=== PATIENT | male | born 1970 | race Caucasian/White ===

== ENCOUNTER 2021-04-10 16:30 | Emergency (ER) | payer OTHER ==
[2021-04-10] MEDS ORDERED: IBUPROFEN 600 MG TAB PO STA (17:15)
[2021-04-10] MEDS ORDERED: ACETAMINOPHEN TAB 500 MG TAB PO STA (17:15)
[2021-04-10] MEDS ORDERED: SODIUM CHLORIDE 0.9% 1,000 ML IV ONE (17:16)
[2021-04-10] MEDS ORDERED: SODIUM CHLORIDE 0.9% 500 ML 500 ML IV ONE (17:16)
[2021-04-10] MEDS ORDERED: ALBUTEROL HFA INHALER INHALATION STA (17:17)
--- NOTE | 2021-04-10 17:48 | XR ---
EXAMINATION TYPE: XR chest 1V portable DATE OF EXAM: 04/10/2021 COMPARISON: NONE HISTORY: Shortness of breath and fever. TECHNIQUE: Single frontal view of the chest is obtained. FINDINGS: There is no focal air space opacity, pleural effusion, or pneumothorax seen. The cardiac silhouette size is within normal limits. The osseous structures are intact. IMPRESSION: No acute process.
[2021-04-10 17:59] LABS: Basophils # (A) 0.1 k/uL (0-0.2); Basophils % (A) 1 %; Eosinophils # (A) 0.1 k/uL (0-0.7); Eosinophils % (A) 1 %; HCT 43.7 % (39.0-53.0); HGB 14.8 gm/dL (13.0-17.5); Lymphocytes # (A) 0.5 k/uL (1.0-4.8); Lymphocytes % (A) 5 %; MCH 32.6 pg (25.0-35.0); MCHC 33.9 g/dL (31.0-37.0); MCV 96.2 fL (80.0-100.0); Mean Platelet Volume 6.7; Monocytes # (A) 0.8 k/uL (0-1.0); Monocytes % (A) 8 %; Neutrophils % (A) 84 %; Platelet Count 230 k/uL (150-450); RBC 4.55 m/uL (4.30-5.90); RDW 11.9 % (11.5-15.5); WBC 9.5 k/uL (3.8-10.6)
[2021-04-10 18:13] LABS: ALT 27 U/L (4-49); AST 31 U/L (17-59); African American GFR (CKD) >90 (>60 ml/min/1.73 sqM); Albumin 4.6 g/dL (3.5-5.0); Alkaline Phosphatase 72 U/L (38-126); Anion Gap 10 mmol/L; Blood Urea Nitrogen 22 mg/dL (9-20); Calcium 9.2 mg/dL (8.4-10.2); Carbon Dioxide 21 mmol/L (22-30); Chloride 104 mmol/L (98-107); Glucose 122 mg/dL (74-99); Non-African American GFR(CKD) >90 (>60 ml/min/1.73 sqM); Sodium 135 mmol/L (137-145); Total Bilirubin 0.7 mg/dL (0.2-1.3); Total Protein 7.6 g/dL (6.3-8.2)
[2021-04-10] MEDS ORDERED: ALBUTEROL NEBULIZED 2.5 MG/3 ML INHALATION STA (18:23)
[2021-04-10] MEDS ORDERED: OSELTAMIVIR 75 MG CAP PO STA (19:07)
--- NOTE | 2021-04-10 19:41 | ED ---
General Adult HPI - General Chief complaint: Fever Stated complaint: Fever, poss altered Time Seen by Provider: 04/10/21 16:55 Source: patient, family, RN notes reviewed, old records reviewed Mode of arrival: wheelchair Limitations: no limitations - History of Present Illness Initial comments: This is a 50-year-old male who presents emergency prostate his morning he woke up feeling terrible very fatigued hot and a little short of breath. Patient states he did not get his COVID vaccine he did not get his influenza vaccine. Patient denies chest pain or palpitations. Patient denies any headache patient denies numbness weakness. Patient's main complaint is high fever and feeling extremely weak. Patient states he is a daily smoker. Patient denies any calf tenderness or leg swelling - Related Data Home Medications Medication Instructions Recorded Confirmed Buprenorphine HCl/Naloxone HCl 1 film SL TID 04/10/21 04/10/21 [Suboxone 8 mg-2 mg Sl Film] Butalb/APAP/Caff 50-325-40Mg 1 tab PO Q6H PRN 04/10/21 04/10/21 [Fioricet 50-325-40] DULoxetine HCL [Cymbalta] 60 mg PO DAILY 04/10/21 04/10/21 Fluticasone/Umeclidin/Vilanter 2 puff INHALATION RT-BID 04/10/21 04/10/21 [Trelegy Ellipta 200-62.5-25] Pregabalin [Lyrica] 200 mg PO TID-W/MEALS 04/10/21 04/10/21 predniSONE [Deltasone] 20 mg PO DAILY 04/10/21 04/10/21 Previous Rx's Medication Instructions Recorded Albuterol Inhaler [Ventolin Hfa 2 puff INHALATION RT-QID #18 gm 04/10/21 Inhaler] Oseltamivir [Tamiflu] 75 mg PO Q12HR #10 cap 04/10/21 Allergies Allergy/AdvReac Type Severity Reaction Status Date / Time No Known Allergies Allergy Verified 04/10/21 17:52 Review of Systems ROS Statement: Those systems with pertinent positive or pertinent negative responses have been documented in the HPI. ROS Other: All systems not noted in ROS Statement are negative. Past Medical History Past Medical History: COPD History of Any Multi-Drug Resistant Organisms: None Reported Past Surgical History: Back Surgery Past Psychological History: No Psychological Hx Reported Smoking Status: Current every day smoker Past Alcohol Use History: None Reported Past Drug Use History: None Reported General Exam - General Exam Comments Initial Comments: GENERAL: Patient is well-developed and well-nourished. Patient is nontoxic and well-hydrated and is in mild distress. ENT: Neck is soft and supple. No significant lymphadenopathy is noted. Oropharynx is clear. Moist mucous membranes. Neck has full range of motion without eliciting any pain. EYES: The sclera were anicteric and conjunctiva were pink and moist. Extraocular movements were intact and pupils were equal round and reactive to light. Eyelids were unremarkable. PULMONARY: Unlabored respirations. Good breath sounds bilaterally. Patient has diffuse wheezing CARDIOVASCULAR: There is a regular rate and rhythm without any murmurs gallops or rubs. ABDOMEN: Soft and nontender with normal bowel sounds. No palpable organomegaly was noted. There is no palpable pulsatile mass. SKIN: Skin is clear with no lesions or rashes and otherwise unremarkable. NEUROLOGIC: Patient is alert and oriented x3. Cranial nerves II through XII are grossly intact. Motor and sensory are also intact. Normal speech, volume and content. Symmetrical smile. MUSCULOSKELETAL: Normal extremities with adequate strength and full range of motion. No lower extremity swelling or edema. No calf tenderness. LYMPHATICS: No significant lymphadenopathy is noted PSYCHIATRIC: Normal psychiatric evaluation. Limitations: no limitations Course Vital Signs 04/10/21 04/10/21 04/10/21 16:58 17:18 19:05 Temperature 103.0 F H 100.3 F H Pulse Rate 100 86 Respiratory 20 20 20 Rate Blood Pressure 131/75 145/88 O2 Sat by Pulse 91 L 92 L Oximetry 04/10/21 19:34 Temperature Pulse Rate 67 Respiratory Rate Blood Pressure O2 Sat by Pulse Oximetry Medical Decision Making - Medical Decision Making chest x-ray shows no acute abnormality. Patient was influenza positive I gave him Tamiflu. Patient also received a liter and half of fluid. Patient also received Tylenol and Motrin. Patient got a breathing treatment - Lab Data Result diagrams: 04/10/21 17:50 04/10/21 17:50 Lab Results 04/10/21 04/10/21 04/10/21 Range/Units 17:03 17:50 17:50 WBC 9.5 (3.8-10.6) k/uL RBC 4.55 (4.30-5.90) m/uL Hgb 14.8 (13.0-17.5) gm/dL Hct 43.7 (39.0-53.0) % MCV 96.2 (80.0-100.0) fL MCH 32.6 (25.0-35.0) pg MCHC 33.9 (31.0-37.0) g/dL RDW 11.9 (11.5-15.5) % Plt Count 230 (150-450) k/uL MPV 6.7 Neutrophils % 84 % Lymphocytes % 5 % Monocytes % 8 % Eosinophils % 1 % Basophils % 1 % Neutrophils # 8.0 H (1.3-7.7) k/uL Lymphocytes # 0.5 L (1.0-4.8) k/uL Monocytes # 0.8 (0-1.0) k/uL Eosinophils # 0.1 (0-0.7) k/uL Basophils # 0.1 (0-0.2) k/uL Sodium (137-145) mmol/L Potassium (3.5-5.1) mmol/L Chloride (98-107) mmol/L Carbon Dioxide (22-30) mmol/L Anion Gap mmol/L BUN (9-20) mg/dL Creatinine (0.66-1.25) mg/dL Est GFR (CKD-EPI)AfAm (>60 ml/min/1.73 sqM) Est GFR (CKD-EPI)NonAf (>60 ml/min/1.73 sqM) Glucose (74-99) mg/dL Calcium (8.4-10.2) mg/dL Total Bilirubin (0.2-1.3) mg/dL AST (17-59) U/L ALT (4-49) U/L Alkaline Phosphatase (38-126) U/L Total Protein (6.3-8.2) g/dL Albumin (3.5-5.0) g/dL Coronavirus (PCR) Not Detected (Not Detectd) Influenza Type A RNA Detected H (Not Detectd) Influenza Type B (PCR) Not Detected (Not Detectd) 04/10/21 Range/Units 17:50 WBC (3.8-10.6) k/uL RBC (4.30-5.90) m/uL Hgb (13.0-17.5) gm/dL Hct (39.0-53.0) % MCV (80.0-100.0) fL MCH (25.0-35.0) pg MCHC (31.0-37.0) g/dL RDW (11.5-15.5) % Plt Count (150-450) k/uL MPV Neutrophils % % Lymphocytes % % Monocytes % % Eosinophils % % Basophils % % Neutrophils # (1.3-7.7) k/uL Lymphocytes # (1.0-4.8) k/uL Monocytes # (0-1.0) k/uL Eosinophils # (0-0.7) k/uL Basophils # (0-0.2) k/uL Sodium 135 L (137-145) mmol/L Potassium 4.0 (3.5-5.1) mmol/L Chloride 104 (98-107) mmol/L Carbon Dioxide 21 L (22-30) mmol/L Anion Gap 10 mmol/L BUN 22 H (9-20) mg/dL Creatinine 0.70 (0.66-1.25) mg/dL Est GFR (CKD-EPI)AfAm >90 (>60 ml/min/1.73 sqM) Est GFR (CKD-EPI)NonAf >90 (>60 ml/min/1.73 sqM) Glucose 122 H (74-99) mg/dL Calcium 9.2 (8.4-10.2) mg/dL Total Bilirubin 0.7 (0.2-1.3) mg/dL AST 31 (17-59) U/L ALT 27 (4-49) U/L Alkaline Phosphatase 72 (38-126) U/L Total Protein 7.6 (6.3-8.2) g/dL Albumin 4.6 (3.5-5.0) g/dL Coronavirus (PCR) (Not Detectd) Influenza Type A RNA (Not Detectd) Influenza Type B (PCR) (Not Detectd) Disposition Clinical Impression: Influenza, COPD (chronic obstructive pulmonary disease) Disposition: HOME SELF-CARE Condition: Good Instructions (If sedation given, give patient instructions): Fever in Adults (ED), Influenza (ED) Additional Instructions: Patient should take Motrin and Tylenol to keep the fever down. Patient should keep hydrated. Patient should return if any difficulty breathing or shortness of breath. Patient should vaccinated for COVID. Prescriptions: Oseltamivir [Tamiflu] 75 mg PO Q12HR #10 cap Albuterol Inhaler [Ventolin Hfa Inhaler] 2 puff INHALATION RT-QID #18 gm Is patient prescribed a controlled substance at d/c from ED?: No Referrals: Cristi Saunders MD [Primary Care Provider] - 1-2 days Time of Disposition: 19:40
[2021-04-10 20:10] VITALS: BP 145/75; PULSE 80; RESP 17; TEMP 99.2
== END 2021-04-10 20:10 | disposition home or self-care (01) ==
LOC: EC 16:30
DX: J44.9 Chronic obstructive pulmonary disease, unspecified (principal); J11.1 Influenza due to unidentified influenza virus with other respiratory manifestations; Z20.822 Contact with and (suspected) exposure to COVID-19; F17.200 Nicotine dependence, unspecified, uncomplicated
CPT/HCPCS: 36415; 71045; 80053; 85025; 87502; 87635; 94640; 99285

== ENCOUNTER → 2021-07-01 | Outpatient (CLI) | payer OTHER ==
--- NOTE | 2021-07-02 04:34 | MR ---
EXAMINATION TYPE: MR cervical spine wo con DATE OF EXAM: 07/01/2021 COMPARISON: None HISTORY: Bilateral arm and hand numbness for 3 months. Multiplanar multiecho imaging of the cervical spine without contrast. The vertebrae show mild straightening. There is small posterior disc herniation at C4-5. There is pepe rowing of the spinal canal at C3-4 level. There is a small area of edema in the cord at C3-4 disc lev el. There is narrowing of the spinal canal measures 6 mm at C3-4 level. Canal measures 6 mm at C4-5. Cerebellar tonsils project slightly into the foramen magnum. IMPRESSION: There is a 7 mm area of mild edema within the cervical spinal cord at C3-4 level apparently related t o spinal stenosis and developing myelomalacia. 6 mm spinal stenosis at C3-4 and C4-5. Posterior mild disc herniations at C4-5.. 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
== END | disposition home or self-care (01) ==
LOC: RADMRIMAIN 20:58
PROVIDERS: ATTEND Family Medicine
DX: M48.02 Spinal stenosis, cervical region (principal); M50.221 Other cervical disc displacement at C4-C5 level; G95.89 Other specified diseases of spinal cord; G93.5 Compression of brain
CPT/HCPCS: 72141

== ENCOUNTER → 2021-07-15 | Outpatient (CLI) | payer OTHER ==
[2021-07-15 14:03] LABS: INR 0.9 (<1.2); Partial Thromboplastin Time 26.8 sec (22.0-30.0); Prothrombin Time 10.2 sec (9.0-12.0)
[2021-07-15 18:13] LABS: HCT 45.7 % (39.6-50.0); HGB 15.3 g/dL (13.0-17.0); MCH 32.3 pg (27.0-32.0); MCHC 33.5 g/dL (32.0-37.0); MCV 96.6 fL (80.0-97.0); Mean Platelet Volume 8.9 fL (9.5-12.2); NRBC Per 100 WBC 0 /100 WBCS (0.0-0.0); Platelet Count 278 X 10*3/uL (140-440); RBC 4.73 X 10*6/uL (4.40-5.60); RDW 11.9 % (11.5-14.5); WBC 8.94 X 10*3/uL (4.50-10.00)
[2021-07-15 18:28] LABS: ALT 22 U/L (10-49); AST 11 U/L (14-35); African American GFR (CKD) 122.5 (60.0-200.0); Albumin 4.6 g/dL (3.8-4.9); Albumin/Globulin Ratio 2.07 (1.60-3.17); Alkaline Phosphatase 80 U/L (41-126); BUN/Creat Ratio 22.39 Ratio (12.00-20.00); Blood Urea Nitrogen 16.7 mg/dL (9.0-27.0); Calcium 9.7 mg/dL (8.7-10.3); Carbon Dioxide 23.5 mmol/L (20.0-27.5); Chloride 101 mmol/L (96-109); Globulin 2.2 g/dL (1.6-3.3); Glucose 142 mg/dL (70-110); Non-African American GFR(CKD) 105.7 (60.0-200.0); Potassium 4.2 mmol/L (3.5-5.5); Sodium 138 mmol/L (135-145); Total Bilirubin <0.15 mg/dL (0.30-1.20); Total Protein 6.8 g/dL (6.2-8.2)
== END | disposition home or self-care (01) ==
LOC: LABPAT 12:09
PROVIDERS: ATTEND Orthopaedic Surgery Orthopaedic Surgery of the Spine
DX: Z01.812 Encounter for preprocedural laboratory examination (principal); M48.061 Spinal stenosis, lumbar region without neurogenic claudication
CPT/HCPCS: 80053; 85027; 85610; 85730

== ENCOUNTER 2021-08-05 11:10 | Day surgery (SDC) | payer OTHER ==
[2021-08-01 12:17] VITALS: BMI 29.5
[~2021-08-05 11:10] MED LIST: DEXAMETHASONE SOD PHOSPHATE 4 MG/ML 1 ML VIAL IV ONE; LACTATED RINGERS 1,000 ML IV SCH; MIDAZOLAM 2 MG/2 ML VIAL IV PRN; ONDANSETRON 4 MG/2 ML VIAL IVP ONE; SCOPOLAMINE 1 MG/72 HR PATCH TRANSDERM ONE; ceFAZolin 1,000 MG in SODIUM CHLORIDE 0.9% IRRIGATIO 1,000 ML IRRIGATION PRN
[2021-08-05 12:02] LABS: Appearance,Urine Clear (Clear); Bilirubin,Urine Negative (Negative); Blood,Urine Negative (Negative); Color,Urine Yellow; Glucose,Urine (UA) Negative (Negative); Ketones,Urine Negative (Negative); Leukocyte Esterase,Urine Negative (Negative); Nitrite,Urine Negative (Negative); Protein,Urine Negative (Negative); Specific Gravity,Urine 1.023 (1.001-1.035); Urobilinogen,Urine <2.0 mg/dL (<2.0)
[2021-08-05 12:35] LABS: Glucose,Whole Blood 104 mg/dL (75-99)
[2021-08-05] MEDS ORDERED: ROCURONIUM 10 MG/ML (5 ML VIAL) IV ONE (13:24)
[2021-08-05] MEDS ORDERED: NEOSTIGMINE 1 MG/ML 10 ML VIAL ONE (13:24)
[2021-08-05] MEDS ORDERED: GLYCOPYRROLATE 0.2 MG/ML 2 ML VIAL ONE (13:24)
[2021-08-05] MEDS ORDERED: ePHEDrine 50 MG/ML 1 ML VIAL ONE (13:24)
[2021-08-05] MEDS ORDERED: DEXAMETHASONE SOD PHOSPHATE 10 MG/ML 1 ML VIAL ONE (13:24)
[2021-08-05] MEDS ORDERED: fentaNYL (PF) 50 MCG/ML 2 ML AMP ONE (13:24)
[2021-08-05] MEDS ORDERED: PROPOFOL 10 MG/ML 20 ML VIAL IV ONE (13:24)
[2021-08-05] MEDS ORDERED: LIDOCAINE 1% INJ 10MG/ML (20 ML MDV) ONE (13:24)
[2021-08-05] MEDS ORDERED: MIDAZOLAM 2 MG/2 ML VIAL ONE (13:24)
[2021-08-05] MEDS ORDERED: SUCCINYLCHOLINE CHLORIDE 100 MG/5 ML SYR IV ONE (13:24)
[2021-08-05] MEDS ORDERED: BUPIVACAIN-EPI 0.25%-1:200,000 30 ML VIAL SQ ONE (14:03)
[2021-08-05] MEDS ORDERED: LACTATED RINGERS 1,000 ML IV ONE (14:59)
[2021-08-05] MEDS ORDERED: HYDROcodone/APAP 7.5-325MG 1 EACH TAB PO PRN (15:18)
[2021-08-05] MEDS ORDERED: HYDROmorphone 1 MG/ML 1 ML SYRINGE IVP PRN (15:18)
[2021-08-05] MEDS ORDERED: BENZOCAINE/MENTHOL LOZENG 1 EACH LOZENGE MUCOUS MEM PRN (15:18)
[2021-08-05] MEDS ORDERED: CYCLOBENZAPRINE 10 MG TAB PO PRN (15:18)
[2021-08-05] MEDS ORDERED: ONDANSETRON 4 MG/2 ML VIAL IVP PRN (15:18)
[2021-08-05] MEDS ORDERED: ALBUTEROL NEBULIZED 2.5 MG/3 ML INHALATION PRN (15:19)
[2021-08-05] MEDS ORDERED: BUTALB/APAP/CAFF 50-325-40MG TAB PO PRN (15:19)
[2021-08-05 15:26] VITALS: TEMP 97.6
[2021-08-05] MEDS ORDERED: SODIUM CHLORIDE 0.9% 1,000 ML IV SCH (15:30)
--- NOTE | 2021-08-05 15:32 | P.OP ---
Date of Procedure: 08/05/21 Preoperative Diagnosis: Cervical myelopathy, herniated nucleus pulposis C3 4 C4 5, cervical stenosis C3 4 C4 5, cervical myelomalacia, neck pain, upper extremity radiculopathy, upper extremity weakness Postoperative Diagnosis: Same Anesthesia: GETA Pathology: none sent Condition: stable Disposition: PACU Description of Procedure: BRIEF OPERATIVE NOTE Preoperative Diagnosis:Cervical myelopathy, herniated nucleus pulposis C3 4 C4 5, cervical stenosis C3 4 C4 5, cervical myelomalacia, neck pain, upper extremity radiculopathy, upper extremity weakness Postoperative Diagnosis:Cervical myelopathy, herniated nucleus pulposis C3 4 C4 5, cervical stenosis C3 4 C4 5, cervical myelomalacia, neck pain, upper extremity radiculopathy, upper extremity weakness Procedure: Anterior cervical decompression with discectomy and fusion at 34 C4 5 Placement of interbody graft C3 4 C4 5 Application of anterior cervical plate C3 4 5 Surgeon: Dr. Suggs Director Retirement: Wally Stephenson is present throughout the entire the case persistence during positioning, dissection, exposure, visualization, and all crucial elements of the case as well as closure. Anesthesia: General anesthesia Estimated blood loss: Approximately 50 mL Complications: None apparent Components implanted: K2M [place] anterior cervical plate system with Vikos inter body allograft bone graft 1 mL of DBX bone putty Disposition: To recovery room in good stable condition. OPERATIVE INDICATIONS The patient has had long-standing issues in their neck and upper extremities. She has been having worsening symptoms over the past several months The patient has been through conservative treatment. He is not having any benefit and felt that he was getting worse. He had imaging which showed significant stenosis at C3 4 C4 5 with some disc degeneration C5 6 C6 7. The stenosis at C3 4 and C4 5 was causing evidence of myelomalacia and he was exhibiting signs of early myelopathy with upper extremity radiculopathy and weakness. The levels at C5 6 C6 7 did not have significant stenosis at this point. I felt the patient would be candidate for anterior cervical decompression with discectomy and fusion C4 5 and C3 4. We discussed various treatment options including surgery, and the patient wishes to proceed with surgery We discussed the risk, patient's alternat megha and benefits of surgery including but not limited to, risk of bleeding risk of infection, risk of need for further surgery, risk of decreased, loss of motion, muscle function, malunion nonunion, hardware failure, nerve damage, paralysis, heart attack, and . OPERATIVE SUMMARY After discussing all the risks, patient alternatives and benefits at length, the patient elected to proceed with surgical intervention, signed informed consent, and presented for their procedure. The patient was seen and examined in the preoperative holding area and the surgical site was marked. The patient was given antibiotics and brought to the operating room. The patient was positioned on the operating room table in a supine position being careful to pad any bony prominences and pressure points. The patient was sedated and intubated by anesthesia in standard fashion. Once the airway and C- spine were stabilized the patient's arms were padded and tucked at her side, with her shoulders gently taped. The head was placed in a donut pad with the neck in good neutral alignment and position. We were careful to maintain the patient's cervical spine and good neutral alignment and position throughout. The patient was prepped and draped in a normal standard fashion. An appropriate timeout and keystone protocol performed. We were able to proceed with the surgery. The local wound area was infiltrated with local anesthetic. An incision was made transversely approximately 2-1/2 cm over the appropriate levels at C4. Dissection was taken down subcutaneously to the level of the platysma which was split in line with its fibers. Dissection was taken with a carotid approach, with the trachea and esophagus medial and the carotid sheath laterally. We dissected down to the anterior surface of the vertebral bodies. Intraoperative x-ray was taken which showed a marker at the appropriate level at C3 4. With the appropriate level positively confirmed, we were able to proceed with discectomy at the appropriate levels. All of the operative levels were exposed appropriately. The patient had all their twitches back, and there was no evidence of recurrent laryngeal issue. The wound was copiously irrigated and suctioned dry as had been done periodically throughout the case. At the appropriate level/levels, I established an annulotomy with an 11 blade scalpel. A discectomy was performed with a combination of pituitary rongeurs, curettes, a high-speed bur, and Kerrison rongeurs. The posterior longitudinal ligament was taken down as were any posterior osteophytes this was done both at C3 4 and then at C4 5. This gave good central and bilateral foraminal decompression. There is no evidence of any dural tear or leak. The endplates were prepared with a high-speed bur. With the endplates in good parallel position, I was able to size for the appropriate size interbody graft. The wound was irrigated and suctioned dry the graft was prepared and malleted into position. It had good alignment and position with the anterior surface flush with the anterior surface of the vertebral bodies. This was done similarly the appropriate levels at C3 4 and at C4 5. With the grafts intact, I was able to measure and contour and appropriate sized plate. The plate was positioned at the midline over the appropriate levels of C3 4 and 5. Screw holes were established with a hand drill and drill guide. Screws were placed in good alignment and position with excellent bony purchase. They were seated under the locking device. The construct was checked and found to be stable. Intraoperative x-ray was taken which showed good alignment and position of the implants at the appropriate levels. There was no evidence of any dural tear or leak. Good hemostasis was maintained. The wound was copiously irrigated and suctioned dry as had been done periodically throughout the case. The platysma was closed with absorbable suture. The subcutaneous tissue was closed. The subcuticular tissue was closed with absorbable suture. The wound was cleaned and dried and dressed appropriately. A soft cervical collar was placed appropriately. The patient was woken up by anesthesia, extubated, transferred back gently to their hospital bed and brought to the recovery room in good stable condition. The patient will be admitted to the hospital for appropriate postoperative care, medical management and monitoring. We will continue to follow them closely about the postoperative course.
[2021-08-05 15:38] VITALS: RESP 16
[2021-08-05] MEDS: HYDROmorphone 0.5 MG/0.5 ML SYRINGE IVP PRN ×3 (15:40→16:02)
[2021-08-05] MEDS ORDERED: HYDROmorphone 0.5 MG/0.5 ML SYRINGE IVP ONE (15:55)
[2021-08-05] MEDS ORDERED: PATIENT'S OWN (Buprenorphine Hcl/Naloxone Hcl [Suboxone 8 Mg-2 Mg Sl Film] 1 EACH Fil SUBLINGUAL SCH (16:00)
[2021-08-05 17:17] VITALS: BP 139/72; PULSE 75
[2021-08-05] MEDS ORDERED: PREGABALIN 100 MG CAP PO SCH (17:30)
--- NOTE | 2021-08-05 17:51 | XR ---
EXAMINATION TYPE: XR cervical spine 1V DATE OF EXAM: 08/05/2021 COMPARISON: MRI dated 07/01/2021 INDICATION: Needle placement TECHNIQUE: Single lateral view of the cervical spine FINDINGS: A needle is seen with its tip superimposed on C3-4 disc space. The patient is intubated. Degenerative changes of the cervical spine. IMPRESSION: As above.
--- NOTE | 2021-08-05 17:53 | XR ---
EXAMINATION TYPE: XR cervical spine 1V DATE OF EXAM: 08/05/2021 COMPARISON: X-ray performed earlier same day INDICATION: Hardware placement TECHNIQUE: Single lateral view of the cervical spine. FINDINGS: Interval anterior fixation of C3, C4 and C5 vertebral bodies. C3-4 and C4-5 disc prosthesis is also n oted. The patient is intubated. Prevertebral soft tissue swelling. IMPRESSION: As above.
[2021-08-05] MEDS ORDERED: IPRATROPIUM 0.5 MG/2.5 ML NEBU INHALATION SCH (20:00)
[2021-08-05] MEDS ORDERED: SYMBICORT 160-4.5 MCG INHALER INHALATION SCH (20:00)
[2021-08-05] MEDS ORDERED: DULoxetine HCL 60 MG CAPSULE.DR PO SCH (21:00)
[2021-08-06] MEDS ORDERED: METOPROLOL SUCCINATE (ER) 50 MG TAB.ER.24H PO SCH (09:00)
== END 2021-08-05 17:29 | disposition home or self-care (01) ==
LOC: OR 11:10 → 5NMEDONC 15:25 → OR 17:29
PROVIDERS: ATTEND Orthopaedic Surgery Orthopaedic Surgery of the Spine
DX: M50.11 Cervical disc disorder with radiculopathy, high cervical region (principal); M50.01 Cervical disc disorder with myelopathy, high cervical region; M48.02 Spinal stenosis, cervical region; G95.89 Other specified diseases of spinal cord
CPT/HCPCS: 22551; 22552; 22845; 20930; 81003; 72020; C1713 ×2; C1762 ×2; J2250; J1100; J2710; J0690 ×2; J2405; J2001; J3010; J0330; J2704; J1170

== ENCOUNTER 2022-05-06 12:46 | Inpatient (IN) | payer BC, OTHER ==
[2022-05-06] MEDS ORDERED: NITROGLYCERIN OINT 1 INCH/GM PACKET TOPICAL STA (13:10)
[2022-05-06] MEDS ORDERED: ASPIRIN 81 MG PO STA (13:10)
[2022-05-06] MEDS ORDERED: IPRATROPIUM-ALBUTEROL 3 ML NEB INHALATION STA ×2 (13:12→15:24)
[2022-05-06] MEDS ORDERED: LABETALOL 5 MG/ML VIAL MDV IVP STA (13:12)
[2022-05-06] MEDS ORDERED: methylPREDNISolone SOD SUCCI 125 MG/2 ML VIAL IV STA (13:13)
[2022-05-06] MEDS ORDERED: KETOROLAC 15 MG/ML 1 ML VIAL IVP STA (13:14)
--- NOTE | 2022-05-06 13:19 | ED ---
Chest Pain HPI - General Chief Complaint: Chest Pain Stated Complaint: chest pain Time Seen by Provider: 05/06/22 13:01 Source: patient Mode of arrival: ambulatory Limitations: no limitations - History of Present Illness Initial Comments: This 52-year-old male presents with a complaint of some chest pain. He describes this as being in his midsternal to left chest and feels like someone is standing on him. It does not radiate. He also complains of shortness of breath which is worse with any exertion. There is no leg pain or swelling. He denies any known history of coronary artery disease or previous myocardial infarction. He did have a stress test approximately 3 years ago which essentially was all within normal limits. He does relate that he was diagnosed by a home test with [facility] about 2-1/2 weeks ago. His symptoms seemed to resolve in this regard. The chest pain is not pleuritic in nature. He also complains of a moderate headache. He does have a history of high blood pressure and takes metoprolol for this at home. His blood pressure is elevated today and he states that this is much higher than normal. He denies any other complaints or modifying factors. - Related Data Home Medications Medication Instructions Recorded Confirmed Butalb/APAP/Caff 50-325-40Mg 1 tab PO Q4H PRN 04/10/21 05/06/22 [Fioricet 50-325-40] DULoxetine HCL [Cymbalta] 60 mg PO DAILY 04/10/21 05/06/22 HYDROcodone/APAP 5-325MG [[place] 1 tab PO Q6H PRN 08/01/21 05/06/22 5-325] Fluticasone/Umeclidin/Vilanter 1 puff INHALATION RT-DAILY 05/06/22 05/06/22 [Trelegy Ellipta 100-62.5-25] LORazepam [Ativan] 0.5 mg PO HS PRN 05/06/22 05/06/22 Metoprolol Tartrate [Lopressor] 50 mg PO BID 05/06/22 05/06/22 Multivitamins, Thera [Multivitamin 1 tab PO DAILY 05/06/22 05/06/22 (formulary)] Omeprazole 20 mg PO DAILY 05/06/22 05/06/22 Pregabalin [Lyrica] 150 mg PO TID 05/06/22 05/06/22 Allergies Allergy/AdvReac Type Severity Reaction Status Date / Time No Known Allergies Allergy Verified 05/06/22 14:30 Review of Systems ROS Statement: Those systems with pertinent positive or pertinent negative responses have been documented in the HPI. ROS Other: All systems not noted in ROS Statement are negative. Past Medical History Past Medical History: COPD, Hypertension, Musculoskeletal Disorder Additional Past Medical History / Comment(s): Treated w/ Rx for HTN, but "not really taking it," per patient. Cervical stenosis, NT bilat arms/hands. History of Any Multi-Drug Resistant Organisms: None Reported Past Surgical History: Back Surgery Past Anesthesia/Blood Transfusion Reactions: No Reported Reaction Past Psychological History: Depression Smoking Status: Current every day smoker Past Alcohol Use History: None Reported - Past Family History Father Family Medical History: Cancer Additional Family Medical History / Comment(s): lung cancer General Exam - General Exam Comments Initial Comments: GENERAL: The patient is well nourished and well hydrated. VITAL SIGNS: Heart rate, blood pressure, respiratory rate reviewed as recorded in nurse's notes. EYES: Pupils are round and reactive. Extraocular movements are intact. No conjunctival / lid redness or swelling. ENT: No external evidence of injury, swelling, or ecchymosis. Airway is patent. Throat is clear. NECK: Nontender. No swelling or evidence of injury. No subcutaneous emphysema. Trachea is midline. No thyroid mass. HEART: Regular rate and rhythm. Good peripheral pulses. LUNGS/CHEST: Wheezing noted bilaterally. No ecchymosis, subcutaneous emphysema, or tenderness. ABDOMEN: Abdomen soft without tenderness. No palpable masses or organomegaly. No peritoneal signs. No abdominal wall swelling or ecchymosis. EXTREMITIES: No extremity tenderness. Normal muscle tone and function. No thoracolumbar tenderness. NEUROLOGIC: Sensation is grossly intact. Cranial nerve exam reveals face is symmetrical, tongue is midline, speech is clear. SKIN: No abrasions or ecchymosis is noted. No induration or masses noted. PSYCHIATRIC: Alert and oriented. Appropriate behavior and judgment. Limitations: no limitations Course Vital Signs 05/06/22 05/06/22 05/06/22 12:52 13:33 13:54 Temperature 98 F Pulse Rate 96 94 82 Respiratory 16 20 22 Rate Blood Pressure 209/98 157/96 O2 Sat by Pulse 96 97 97 Oximetry 05/06/22 05/06/22 05/06/22 14:00 14:07 14:15 Temperature Pulse Rate 89 86 86 Respiratory 12 Rate Blood Pressure 157/96 O2 Sat by Pulse 95 Oximetry 05/06/22 15:00 Temperature Pulse Rate 92 Respiratory 16 Rate Blood Pressure 151/89 O2 Sat by Pulse 94 L Oximetry Chest Pain MDM - MDM The patient was seen and examined. All diagnostics are reviewed. The EKG shows a normal sinus rhythm at a rate of 87. There is no acute ST-T wave changes identified. The HI intervals 146, QRS duration is 86, QTC intervals 393. The patient's blood pressure is elevated and receives labetalol. He also receives Nitropaste and aspirin. He is given Toradol for his headache. He has bronchospasm noted on exam and received DuoNeb and Solu-Medrol in this regard. He voices some mild relief with a DuoNeb treatment. The laboratory came back all essentially within normal limits with a negative d-dimer, troponin, and BNP. His chest x-ray shows evidence of bilateral atypical pneumonia. It is felt as though that this would be consistent with his diagnosis of recent COVID infection. However, his description of symptomatology in regards to his chest p ain is very worrisome for cardiac etiology. It is felt as though he benefit from admission to the hospital for further workup in this regard. It is felt as though he would benefit from an echocardiogram. He also may benefit from a stress test. His oxygenation is at 93% on room air on recheck. Case is discussed with Dr. Yen from internal medicine and she is agreeable with admission. Was pt. sent in by a medical professional or institution? @ -No Did you speak to anyone other than the patient for history? @ - Did you review nursing and triage notes? @ -Reviewed and agree Were old charts reviewed? @ -No Differential Diagnosis? @ -Pneumonia, chest pain, pulmonary embolism, viral cardiomyopathy EKG interpreted by me (3pts min.)? @ -Yes X-rays interpreted by me (1pt min.)? @ -Yes CT interpreted by me (1pt min.)? @ -none U/S interpreted by me (1pt. min.)? @ -none What testing was considered but not performed? (CT, X-rays, U/S, labs)? Why? @ None What meds were considered but not given? Why? @ -None Did you discuss the management of the patient with other professionals? @ -Discussed with internal medicine Did you reconcile home meds? @ -Yes Was smoking cessation discussed for >3mins.? @ -No Was critical care preformed (if so, how long)? @ -No Were there social determinants of health that impacted care today? How? (Homelessness, low income, unemployed, alcoholism, drug addiction, transportation, low edu. Level, literacy, decrease access to med. care, nursing home, rehab)? @ -None Was there de-escalation of care discussed even if they declined? (Discuss DNR or withdrawal of care, Hospice)? @ -None What co-morbidities impacted this encounter? (DM, HTN, Smoking, COPD, CAD, Cancer, CVA, Hep., AIDS, mental health diagnosis, sleep apnea, morbid obesity)? @ -None Was patient admitted / discharged? @ -Admitted Undiagnosed new problem with uncertain prognosis? @ -Yes Drug Therapy requiring intensive monitoring for toxicity (Heparin, Nitro, Insulin, Cardizem)? @ -None Were any procedures done? @ -none Diagnosis/symptom? @ -Chest pain, unstable angina Acute, or Chronic, or Acute on Chronic? @ -Acute Uncomplicated (without systemic symptoms) or Complicated (systemic symptoms)? @ -Uncomplicated Side effects of treatment? @ -None Exacerbation, Progression, or Severe Exacerbation] @ -Exacerbation Poses a threat to life or bodily function? @ -Yes Disposition Clinical Impression: Chest pain, Unstable angina pectoris, Hypertension, Atypical pneumonia, COVID- 19 Disposition: ADMITTED IP TO THIS [facility] Condition: Fair Time of Disposition: 15:17 Decision Date: 05/06/22 Decision Time: 15:17
[2022-05-06 13:25] LABS: Basophils # (A) 0.1 k/uL (0-0.2); Basophils % (A) 1 %; Eosinophils # (A) 0.2 k/uL (0-0.7); Eosinophils % (A) 2 %; HCT 45.9 % (39.0-53.0); HGB 16.4 gm/dL (13.0-17.5); Lymphocytes # (A) 2.1 k/uL (1.0-4.8); Lymphocytes % (A) 22 %; MCH 33.6 pg (25.0-35.0); MCHC 35.7 g/dL (31.0-37.0); Mean Platelet Volume 7.9; Monocytes # (A) 0.6 k/uL (0-1.0); Monocytes % (A) 7 %; Neutrophils # (A) 6.2 k/uL (1.3-7.7); Neutrophils % (A) 67 %; Platelet Count 234 k/uL (150-450); RBC 4.88 m/uL (4.30-5.90); RDW 11.8 % (11.5-15.5); WBC 9.3 k/uL (3.8-10.6)
[2022-05-06 13:41] LABS: ALT 28 U/L (4-49); AST 22 U/L (17-59); African American GFR (CKD) >90 (>60 ml/min/1.73 sqM); Albumin 4.4 g/dL (3.5-5.0); Alkaline Phosphatase 91 U/L (38-126); Anion Gap 7 mmol/L; Blood Urea Nitrogen 18 mg/dL (9-20); Calcium 9.3 mg/dL (8.4-10.2); Carbon Dioxide 28 mmol/L (22-30); Chloride 106 mmol/L (98-107); Glucose 140 mg/dL (74-99); Magnesium 2.4 mg/dL (1.6-2.3); Non-African American GFR(CKD) >90 (>60 ml/min/1.73 sqM); Potassium 4.2 mmol/L (3.5-5.1); Sodium 141 mmol/L (137-145); Total Bilirubin 0.6 mg/dL (0.2-1.3); Total Protein 7.5 g/dL (6.3-8.2)
[2022-05-06 13:44] LABS: INR 0.9 (<1.2); Partial Thromboplastin Time 28.7 sec (22.0-30.0); Prothrombin Time 9.7 sec (9.0-12.0)
--- NOTE | 2022-05-06 14:15 | XR ---
EXAMINATION TYPE: XR chest 2V DATE OF EXAM: 05/06/2022 COMPARISON: 04/10/2021 HISTORY: 52-year-old male chest pain TECHNIQUE: PA and lateral views FINDINGS: Heart normal size. Aorta within normal limits. Central peribronchial cuffing noted. There is some foc al right infrahilar and left perihilar opacities. No pleural effusion. IMPRESSION: Peribronchial cuffing and patchy perihilar opacities on both sides. Correlate for etiologies such as bronchitis or atypical pneumonias.
[2022-05-06] MEDS ORDERED: LORazepam 0.5 MG TAB PO PRN (15:22)
[2022-05-06] MEDS ORDERED: ACETAMINOPHEN TAB 325 MG TAB PO PRN (15:24)
[2022-05-06] MEDS ORDERED: NITROGLYCERIN SL TABS 0.4 MG TAB SUBLINGUAL PRN (15:24)
[2022-05-06] MEDS: IPRATROPIUM 0.5 MG/2.5 ML NEBU INHALATION SCH ×2 (15:58→20:00)
[2022-05-06] MEDS: HEPARIN SODIUM,PORCINE/PF 5,000 UNIT/0.5 ML SYRINGE SQ SCH ×2 (16:31→23:17)
[2022-05-06] MEDS: PREGABALIN 75 MG CAP PO SCH ×2 (17:00→23:17)
--- NOTE | 2022-05-06 17:21 | P.HPIM ---
History of Present Illness H&P Date: 05/06/22 History of Presenting Illness: Patient is a very pleasant 52-year-old male with a past medical history of hypertension, COPD, and recent infection with Covid 19. He presented to the emergency department with a chief complaint of chest pain. Patient reports previous diagnosis of Covid 19 infection on 04/18/22. Patient reports since he has had a persistent cough, congestion, and increased shortness of breath. Patient states he has never fully recovered. He and his at bedside deny any recent fevers, chills, diaphoresis, palpitations, abdominal pain, nausea, vomiting, or any other complaints. Patient reports today prior to arrival he began experiencing significantly worsening shortness of breath and pain to left anterior chest. Upon arrival to our facility patient found to be in hypertensive urgency with blood pressure of 209/98 and heart rate of 96. Labs completed and fully reviewed. CBC, coags, and CMP showing no significant abnormalities. D- dimer was normal at 0.33 and troponin was negative at less than 0.012. An EKG was completed showing normal sinus rhythm at 87 bpm with no noted T-wave or ST abnormalities showing no signs of acute ischemia as personally reviewed and interpreted. Chest x-ray showing peribronchial cuffing and patchy perihilar opacities bilaterally, possibly residual from recent Covid 19 infection versus other etiologies such as bronchitis. Discussed results in detail with ER physician and patient has been accepted for admission under our services with consultation to cardiology and pulmonology. Review of systems: Pertinent positives and negatives as discussed in HPI, a complete review of systems was performed and all other systems are negative. Physical exam: Vital signs reviewed and stable. General: Nontoxic, no distress and appears stated age. Derm: Skin warm and dry, normal coloration for ethnicity. Head: Atraumatic, normocephalic and symmetric. Eyes: EOMs intact, no lid lag, and anicteric sclera Mouth: no lip lesions, mucus membranes moist Cardiovascular: regular rate and rhythm with normal S1S2, systolic murmur, positive posterior tibial pulses bilaterally, and cap refill < 2 seconds. Lungs: Respirations even, regular, and unlabored on room air, lungs tight with expiratory wheezing throughout all [place]. Abdominal: soft, nontender to palpation, no guarding, no appreciable organomegaly Ext: ROM intact. No gross muscle atrophy, no edema, no contractures Neuro: Speech clear, face symmetrical and CN II-XII grossly intact with no noted focal neuro deficits Psych: Alert and oriented to person, place, time, and situation. Appropriate and pleasant affect. Assessment and Plan of Care: Chest pain, rule out acute coronary event Hypertensive urgency COPD with acute exacerbation and continued nicotine dependence Recent Covid 19 infection Bilateral opacities, possibly residual from recent Covid 19 infection versus other etiologies such as a bronchitis -Cardiology consult, appreciate further recommendations -Pulmonary consulted for COPD exacerbation -Telemetry monitoring -Trend troponins -Cardiac diet, NPO at midnight -Aspirin, atorvastatin, and metoprolol -Lipid profile with a.m. labs. -Echocardiogram -Influenza A and B PCR to be obtained -Patient to continue Symbicort to supplement home inhaler Trelegy Ellipta based on hospital availability -DuoNebs scheduled four times daily and as needed for shortness of breath and/or wheezing. -Nicotine patch -Solu-Medrol 40 mg IVP twice daily The patient is admitted with an anticipated less than 2 midnight stay for evaluation of chest pain CODE STATUS: Full code DVT prophylaxis: Heparin Discussed with: Patient, ED physician, and RN Anticipated discharge date: 1-[address]: Home A total of 46 minutes was spent on the care of this complex patient more than 50% of the time was spent in counseling and care coordination. Mathew Juarez NP rendered care for this patient independently, reviewed the findings and plan as documented in the note above. I did not physically speak with or examine the patient on this date. Past Medical History Past Medical History: COPD, Hypertension, Musculoskeletal Disorder Additional Past Medical History / Comment(s): Treated w/ Rx for HTN, but "not really taking it," per patient. Cervical stenosis, NT bilat arms/hands. History of Any Multi-Drug Resistant Organisms: None Reported Past Surgical History: Back Surgery Past Anesthesia/Blood Transfusion Reactions: No Reported Reaction Past Psychological History: Depression Smoking Status: Current every day smoker Past Alcohol Use History: None Reported - Past Family History Father Family Medical History: Cancer Additional Family Medical History / Comment(s): lung cancer Medications and Allergies Home Medications Medication Instructions Recorded Confirmed Type Butalb/APAP/Caff 50-325-40Mg 1 tab PO Q4H PRN 04/10/21 05/06/22 History [Fioricet 50-325-40] DULoxetine HCL [Cymbalta] 60 mg PO DAILY 04/10/21 05/06/22 History HYDROcodone/APAP 5-325MG [[place] 1 tab PO Q6H PRN 08/01/21 05/06/22 History 5-325] Fluticasone/Umeclidin/Vilanter 1 puff INHALATION RT-DAILY 05/06/22 05/06/22 History [Trelegy Ellipta 100-62.5-25] LORazepam [Ativan] 0.5 mg PO HS PRN 05/06/22 05/06/22 History Metoprolol Tartrate [Lopressor] 50 mg PO BID 05/06/22 05/06/22 History Multivitamins, Thera [Multivitamin 1 tab PO DAILY 05/06/22 05/06/22 History (formulary)] Omeprazole 20 mg PO DAILY 05/06/22 05/06/22 History Pregabalin [Lyrica] 150 mg PO TID 05/06/22 05/06/22 History Allergies Allergy/AdvReac Type Severity Reaction Status Date / Time No Known Allergies Allergy Verified 05/06/22 14:30 Physical Exam Osteopathic Statement: *. No significant issues noted on an osteopathic structural exam other than those noted in the History and Physical/Consult. Vitals: Vital Signs Temp Pulse Resp BP Pulse Ox 05/06/22 15:00 92 16 151/89 94 L 05/06/22 14:15 86 05/06/22 14:07 86 05/06/22 14:00 89 12 157/96 95 05/06/22 13:54 82 22 97 05/06/22 13:33 94 20 157/96 97 05/06/22 12:52 98 F 96 16 209/98 96 Intake and Output 05/06/22 05/06/22 05/06/22 06:59 14:59 22:59 Other: Weight 104.326 kg Results CBC & Chem 7: 05/06/22 13:18 05/06/22 13:18 Labs: Abnormal Lab Results - Last 24 Hours (Table) 05/06/22 Range/Units 13:18 Glucose 140 H (74-99) mg/dL Magnesium 2.4 H (1.6-2.3) mg/dL
[2022-05-06] MEDS: BUTALB/APAP/CAFF 50-325-40MG TAB PO PRN (17:53)
[2022-05-06] MEDS: NICOTINE 14MG/24HR PATCH TRANSDERM SCH (18:14)
[2022-05-06] MEDS: NITROGLYCERIN OINT 1 INCH/GM PACKET TOPICAL SCH ×2 (18:16→23:17)
[2022-05-06] MEDS: METOPROLOL TARTRATE 50 MG TAB PO SCH (19:52)
[2022-05-06] MEDS: HYDROcodone/APAP 5-325MG 1 EACH TAB PO PRN (19:52)
[2022-05-06] MEDS: IPRATROPIUM-ALBUTEROL 3 ML NEB INHALATION PRN (20:00)
[2022-05-06] MEDS: SYMBICORT 80-4.5 MCG INHALER INHALATION SCH (20:00)
[2022-05-06] MEDS: methylPREDNISolone SOD SUCCI 40 MG/ML 1 ML VIAL IV SCH (22:48)
[2022-05-07] MEDS: BUTALB/APAP/CAFF 50-325-40MG TAB PO PRN (00:51)
[2022-05-07] MEDS: PANTOPRAZOLE 40 MG TABLET PO SCH (06:20)
[2022-05-07] MEDS: NITROGLYCERIN OINT 1 INCH/GM PACKET TOPICAL SCH (06:22)
[2022-05-07] MEDS: methylPREDNISolone SOD SUCCI 40 MG/ML 1 ML VIAL IV SCH (08:06)
[2022-05-07] MEDS: DULoxetine HCL 60 MG CAPSULE.DR PO SCH (08:06)
[2022-05-07] MEDS: NICOTINE 14MG/24HR PATCH TRANSDERM SCH (08:06)
[2022-05-07] MEDS: PREGABALIN 75 MG CAP PO SCH ×3 (08:06→20:15)
[2022-05-07] MEDS: MULTIVITAMINS, THERA 1 EACH TAB PO SCH (08:06)
[2022-05-07] MEDS: HEPARIN SODIUM,PORCINE/PF 5,000 UNIT/0.5 ML SYRINGE SQ SCH ×2 (08:06→16:39)
[2022-05-07] MEDS: HYDROcodone/APAP 5-325MG 1 EACH TAB PO PRN ×2 (08:06→23:25)
[2022-05-07] MEDS: METOPROLOL TARTRATE 50 MG TAB PO SCH ×2 (08:06→20:15)
[2022-05-07] MEDS: SYMBICORT 80-4.5 MCG INHALER INHALATION SCH (08:45)
[2022-05-07] MEDS: IPRATROPIUM-ALBUTEROL 3 ML NEB INHALATION PRN ×2 (08:45→16:10)
[2022-05-07] MEDS: IPRATROPIUM 0.5 MG/2.5 ML NEBU INHALATION SCH ×4 (08:49→20:12)
[2022-05-07] MEDS ORDERED: ASPIRIN 325 MG TAB PO SCH (09:00)
[2022-05-07] MEDS ORDERED: PROCHLORPERAZINE INJ 10 MG/2 ML VIAL IVP STA (10:34)
[2022-05-07] MEDS ORDERED: KETOROLAC 15 MG/ML 1 ML VIAL IVP STA (10:34)
[2022-05-07] MEDS ORDERED: diphenhydrAMINE 50 MG/ML 1 ML VIAL IVP STA (10:34)
--- NOTE | 2022-05-07 10:36 | P.PN ---
Subjective Progress Note Date: 05/07/22 History of Presenting Illness: Patient is a very pleasant 52-year-old male with a past medical history of hypertension, COPD, and recent infection with Covid 19. He presented to the em ergency department with a chief complaint of chest pain. Patient reports previous diagnosis of Covid 19 infection on 04/18/22. Patient reports since he has had a persistent cough, congestion, and increased shortness of breath. Patient states he has never fully recovered. He and his at bedside deny any recent fevers, chills, diaphoresis, palpitations, abdominal pain, nausea, vomiting, or any other complaints. Patient reports today prior to arrival he began experiencing significantly worsening shortness of breath and pain to left anterior chest. Upon arrival to our facility patient found to be in hypertensive urgency with blood pressure of 209/98 and heart rate of 96. Labs completed and fully reviewed. CBC, coags, and CMP showing no significant abnormalities. D- dimer was normal at 0.33 and troponin was negative at less than 0.012. An EKG was completed showing normal sinus rhythm at 87 bpm with no noted T-wave or ST abnormalities showing no signs of acute ischemia as personally reviewed and interpreted. Chest x-ray showing peribronchial cuffing and patchy perihilar opacities bilaterally, possibly residual from recent Covid 19 infection versus other etiologies such as bronchitis. Discussed results in detail with ER physician and patient has been accepted for admission under our services with consultation to cardiology and pulmonology. Troponins trended overnight all negative at less than 0.0123 draws. Influenza A and B PCR negative. Lipid profile resulting revealing elevated triglycerides of 228, cholesterol 285, LDL of 187.8, and VLDL of 45.60. Patient started on atorvastatin 40 mg nightly. Physical exam: Patient seen and fully evaluated at bedside this morning. Patient remains significantly wheezy and tight with persistent nonproductive cough. Blood pressures have been more controlled with morning blood pressure of 115/58 and heart rate of 84. Patient is 93% on room air and continues to have noted conversational dyspnea. He denies having further episodes of chest pain/discomfort. Awaiting echocardiogram to be completed and recommendations from cardiology and pulmonology. Vital signs reviewed and stable. General: Nontoxic, no distress and appears stated age. Derm: Skin warm and dry, normal coloration for ethnicity. Head: Atraumatic, normocephalic and symmetric. Eyes: EOMs intact, no lid lag, and anicteric sclera Mouth: no lip lesions, mucus membranes moist Cardiovascular: regular rate and rhythm with normal S1S2, systolic murmur, positive posterior tibial pulses bilaterally, and cap refill < 2 seconds. Lungs: Respirations even, regular, and unlabored on room air, lungs remain tight with expiratory wheezing throughout all [place]. Abdominal: soft, nontender to palpation, no guarding, no appreciable organomegaly Ext: ROM intact. No gross muscle atrophy, no edema, no contractures Neuro: Speech clear, face symmetrical and CN II-XII grossly intact with no noted focal neuro deficits Psych: Alert and oriented to person, place, time, and situation. Appropriate and pleasant affect. Assessment and Plan of Care: Chest pain, rule out acute coronary event Hypertensive urgency COPD with acute exacerbation and continued nicotine dependence, COPD exacerbation likely from recent Covid 19 infection Recent Covid 19 infection Bilateral opacities, likely residual from recent Covid 19 infection versus other etiologies such as a bronchitis -Cardiology consulted, appreciate further recommendations -Pulmonary consulted for COPD exacerbation -Telemetry monitoring -Trend troponins -Cardiac diet, NPO at midnight -Continue Aspirin, atorvastatin, and metoprolol -Lipid profile revealing elevated triglycerides of 228, cholesterol 285, LDL of 187.8, and VLDL of 45.60. Patient started on atorvastatin 40 mg nightly. -Echocardiogram -Influenza A and B PCR negative -Patient to continue Symbicort to supplement home inhaler Trelegy Ellipta based on hospital availability. -DuoNebs scheduled four times daily and as needed for shortness of breath and/or wheezing. -Nicotine patch, and strongly encourage smoking cessation -Continue Solu-Medrol 40 mg IVP twice daily -We will obtain a pro-calcitonin and hold off on antimicrobial therapy as patient showing no signs of acute infection, he is afebrile and normal WBC count and denies increased sputum purulence or changes in sputum thickness or volume. CODE STATUS: Full code DVT prophylaxis: Heparin Discussed with: Patient and RN Anticipated discharge date: 1-[address]: Home A total of 34 minutes was spent on the care of this complex patient more than 50% of the time was spent in counseling and care coordination. Mathew Juarez NP rendered care for this patient independently, reviewed the findings and plan as documented in the note above. I did not physically speak with or examine the patient on this date. Objective - Vital Signs Vital signs: Vital Signs Temp 97.7 F 05/07/22 08:05 Pulse 75 05/07/22 08:45 Resp 16 05/07/22 08:45 BP 115/58 05/07/22 08:05 Pulse Ox 93 L 05/07/22 08:05 FiO2 Intake & Output 05/06/22 05/07/22 05/07/22 18:59 06:59 18:59 Intake Total 737 Balance 737 Weight 104.326 kg Intake: Oral 737 Other: Voiding Method Toilet # Voids 1 - Labs CBC & Chem 7: 05/06/22 13:18 05/06/22 13:18 Labs: Abnormal Lab Results - Last 24 Hours (Table) 05/06/22 Range/Units 13:18 Glucose 140 H (74-99) mg/dL Magnesium 2.4 H (1.6-2.3) mg/dL
[2022-05-07] MEDS: ASPIRIN 81 MG PO SCH (10:39)
[2022-05-07 10:45] LABS: Chol/HDL Ratio 5.52 Ratio; LDL Cholesterol,Calculated 187.8 mg/dL (0.0-131.0)
--- NOTE | 2022-05-07 11:12 | P.CRDCN ---
History of Present Illness Consult date: 05/07/22 History of present illness: HISTORY OF PRESENT ILLNESS: This is a 52-year-old male with a past medical history significant for hypertension, hyperlipidemia, nicotine dependence, and recent Covid infection. 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 We have been asked to see the patient in consultation for chest pain. Patient examined at the bedside. Patient states he was diagnosed with Covid on 04/18/2022. He presents to the hospital with SOB and chest pain. Patient states yesterday he started having chest pain that went across his chest and up his left neck. He states the pain is worse with deep inspiration. He does report pain with chest wall palpation. He states he was feeling dizzy and lightheaded. The patient reports a frequent cough. He reports having a stress test a few years ago which was negative to his knowledge. The patient states he is unsure why he had this performed. The patient reports a family history of premature coronary artery disease. He states that his dad from heart attack at the age of 62. The patient was found to be hypertensive upon admission with a blood pressure of 209/98. The patient's blood pressure has improved with this morning. He does report that he is prescribed metoprolol an outpatient basis. He states he is prescribed a statin for his high cholesterol but reports he does not take it. He states that he has a current cigarette smoker and smokes 1 pack per day. * EKG reveals sinus mechanism with no signs of acute ischemia * Chest xray peribronchial cuffing and patchy perihilar opacities on both sides. Correlate for etiology such as bronchitis or atypical pneumonias. * Laboratory data: WBC 9.3. Hemoglobin 16.4. Platelet count 234. D-dimer 0.33. Sodium 141. Potassium 4.2. BUN 18. Creatinine 0.76. Troponin negative 3. * Current home cardiac medications include metoprolol tartrate 50 mg twice a day REVIEW OF SYSTEMS: At the time of my exam: CONSTITUTIONAL: Denies fever or chills. HEENT: Denies blurred vision, vision changes, or eye pain. Denies hemoptysis CARDIOVASCULAR: Denies chest pain. Denies orthopnea. Denies PND. Denies palpitations RESPIRATORY: Denies shortness of breath. GASTROINTESTINAL: Denies abdominal pain. Denies nausea or vomiting. HEMATOLOGIC: Denies bleeding disorders. GENITOURINARY: Denies any blood in urine. SKIN: Denies pruitis. Denies rash. PHYSICAL EXAM: VITAL SIGNS: Reviewed. GENERAL: Well-developed in no acute distress. HEENT: Head is normocephalic. Pupils are equal, round. Sclerae anicteric. Mucous membranes of the mouth are moist. Neck supple. No JVD or thyromegaly LUNGS: Respirations even and unlabored. Lungs diminished with wheezing and rhonchi noted HEART: Regular rate and rhythm. S1 and S2 heard. ABDOMEN: Soft. Nondistended. Nontender. EXTREMITIES: Normal range of motion. No clubbing or cyanosis. Peripheral pulses intact. No lower extremity edema NEUROLOGIC: Awake and alert. Oriented x 3. ASSESSMENT: Chest pain, atypical, troponin negative 3 Hypertension, uncontrolled on admission Hyperlipidemia, patient is noncompliant with statin therapy Recent Covid infection, March 2022 Acute COPD exacerbation Nicotine dependence Family history of premature coronary artery disease PLAN: An acute coronary been has been ruled out Resume home cardiac medications Add atorvastatin 40 mg at night Add aspirin 81 mg daily Obtain 2-D echo to assess cardiac structure and function Recommend outpatient stress test when patient's acute pulmonary issues have resolved Further recommendations pending patient course Nurse practitioner note has been reviewed by physician. Signing provider agrees with the documented findings, assessment, and plan of care. Past Medical History Past Medical History: COPD, Hypertension, Musculoskeletal Disorder Additional Past Medical History / Comment(s): Treated w/ Rx for HTN, but "not really taking it," per patient. Cervical stenosis, NT bilat arms/hands. History of Any Multi-Drug Resistant Organisms: None Reported Past Surgical History: Back Surgery Additional Past Surgical History / Comment(s): knee surgery Past Anesthesia/Blood Transfusion Reactions: No Reported Reaction Past Psychological History: Depression Smoking Status: Current every day smoker Past Alcohol Use History: None Reported - Past Family History Father Family Medical History: Cancer Additional Family Medical History / Comment(s): lung cancer Medications and Allergies Home Medications Medication Instructions Recorded Confirmed Type Butalb/APAP/Caff 50-325-40Mg 1 tab PO Q4H PRN 04/10/21 05/06/22 History [Fioricet 50-325-40] DULoxetine HCL [Cymbalta] 60 mg PO DAILY 04/10/21 05/06/22 History HYDROcodone/APAP 5-325MG [[place] 1 tab PO Q6H PRN 08/01/21 05/06/22 History 5-325] Fluticasone/Umeclidin/Vilanter 1 puff INHALATION RT-DAILY 05/06/22 05/06/22 History [Trelegy Ellipta 100-62.5-25] LORazepam [Ativan] 0.5 mg PO HS PRN 05/06/22 05/06/22 History Metoprolol Tartrate [Lopressor] 50 mg PO BID 05/06/22 05/06/22 History Multivitamins, Thera [Multivitamin 1 tab PO DAILY 05/06/22 05/06/22 History (formulary)] Omeprazole 20 mg PO DAILY 05/06/22 05/06/22 History Pregabalin [Lyrica] 150 mg PO TID 05/06/22 05/06/22 History Allergies Allergy/AdvReac Type Severity Reaction Status Date / Time No Known Allergies Allergy Verified 05/06/22 14:30 Physical Exam Vitals: Vital Signs Temp Pulse Pulse Pulse Resp BP BP 05/07/22 08:05 97.7 F 84 20 115/58 05/07/22 03:16 98 F 90 18 138/70 05/07/22 02:00 89 18 05/07/22 00:00 97.6 F 98 20 155/46 05/06/22 20:14 88 05/06/22 20:01 90 05/06/22 19:39 98.7 F 113 H 18 163/72 05/06/22 17:57 98.4 F 104 H 16 125/65 05/06/22 17:24 97.8 F 104 H 16 125/65 05/06/22 17:00 97 18 154/87 05/06/22 16:07 93 18 05/06/22 16:00 93 21 133/92 05/06/22 15:58 109 H 18 05/06/22 15:00 92 16 151/89 05/06/22 14:15 86 05/06/22 14:07 86 05/06/22 14:00 89 12 157/96 05/06/22 13:54 82 22 05/06/22 13:33 94 20 157/96 05/06/22 12:52 98 F 96 16 209/98 Pulse Ox 05/07/22 08:05 93 L 05/07/22 03:16 97 05/07/22 02:00 05/07/22 00:00 95 05/06/22 20:14 05/06/22 20:01 05/06/22 19:39 94 L 05/06/22 17:57 92 L 05/06/22 17:24 92 L 05/06/22 17:00 93 L 05/06/22 16:07 05/06/22 16:00 94 L 05/06/22 15:58 05/06/22 15:00 94 L 05/06/22 14:15 05/06/22 14:07 05/06/22 14:00 95 05/06/22 13:54 97 05/06/22 13:33 97 05/06/22 12:52 96 Intake and Output 05/06/22 05/07/22 05/07/22 22:59 06:59 14:59 Intake Total 237 500 Balance 237 500 Intake: Oral 237 500 Other: Voiding Method Toilet # Voids 1 Weight 104.326 kg Results 05/06/22 13:18 05/06/22 13:18 Cardiac Enzymes 05/06/22 05/06/22 05/06/22 Range/Units 13:18 13:18 16:50 AST 22 (17-59) U/L Troponin I <0.012 <0.012 (0.000-0.034) ng/mL 05/06/22 Range/Units 20:32 AST (17-59) U/L Troponin I <0.012 (0.000-0.034) ng/mL Coagulation 05/06/22 Range/Units 13:18 PT 9.7 (9.0-12.0) sec APTT 28.7 (22.0-30.0) sec CBC 05/06/22 Range/Units 13:18 WBC 9.3 (3.8-10.6) k/uL RBC 4.88 (4.30-5.90) m/uL Hgb 16.4 (13.0-17.5) gm/dL Hct 45.9 (39.0-53.0) % Plt Count 234 (150-450) k/uL Comprehensive Metabolic Panel 05/06/22 Range/Units 13:18 Sodium 141 (137-145) mmol/L Potassium 4.2 (3.5-5.1) mmol/L Chloride 106 (98-107) mmol/L Carbon Dioxide 28 (22-30) mmol/L BUN 18 (9-20) mg/dL Creatinine 0.76 (0.66-1.25) mg/dL Glucose 140 H (74-99) mg/dL Calcium 9.3 (8.4-10.2) mg/dL AST 22 (17-59) U/L ALT 28 (4-49) U/L Alkaline Phosphatase 91 (38-126) U/L Total Protein 7.5 (6.3-8.2) g/dL Albumin 4.4 (3.5-5.0) g/dL Current Medications Generic Name Dose Route Start Last Admin Trade Name Freq PRN Reason Stop Dose Admin Acetaminophen 650 mg 05/06/22 15:24 Acetaminophen Tab 325 Mg Tab PO Q4HR PRN Pain Acetaminophen/Butalbital/Caffeine 1 each 05/06/22 15:22 05/07/22 00:51 Butalb/Apap/Caff 50-325-40mg Tab PO 1 each Q4H PRN Administration Migraine Headache Hydrocodone Bitart/Acetaminophen 1 each 05/06/22 15:22 05/07/22 08:06 Hydrocodone/Apap 5-325mg 1 Each Tab PO 1 each Q6H PRN Administration Pain Albuterol/Ipratropium 3 ml 05/06/22 15:54 05/06/22 20:00 Ipratropium-Albuterol 3 Ml Neb INHALATION 3 ml Q2H PRN Administration Shortness Of Breath Or Wheezing Aspirin 325 mg 05/07/22 09:00 05/07/22 08:06 Aspirin 325 Mg Tab PO 325 mg DAILY SARAH Administration Budesonide/Formoterol Fumarate 2 puff 05/06/22 20:00 05/06/22 20:00 Symbicort 80-4.5 Mcg Inhaler INHALATION 2 puff RT-BID SARAH Administration Duloxetine HCl 60 mg 05/07/22 09:00 05/07/22 08:06 Duloxetine Hcl 60 Mg Capsule.Dr PO 60 mg DAILY SARAH Administration Heparin Sodium (Porcine) 5,000 unit 05/06/22 16:00 05/07/22 08:06 Heparin Sodium,Porcine/Pf 5,000 Unit/0.5 Ml Syringe SQ 5,000 unit Q8HR SARAH Administration Ipratropium [place] 0.5 mg 05/06/22 16:00 05/06/22 20:00 Ipratropium 0.5 Mg/2.5 Ml Nebu INHALATION Not Given RT-QID [facility] Lorazepam 0.5 mg 05/06/22 15:22 05/07/22 00:51 Lorazepam 0.5 Mg Tab PO 0.5 mg HS PRN Administration Anxiety Methylprednisolone Sodium Succinate 40 mg 05/06/22 21:00 05/07/22 08:06 Methylprednisolone Sod Succi 40 Mg/Ml 1 Ml Vial IV 40 mg Q12HR [facility] Administration Metoprolol Tartrate 50 mg 05/06/22 21:00 05/07/22 08:06 Metoprolol Tartrate 50 Mg Tab PO 50 mg BID [facility] Administration Multivitamins 1 each 05/07/22 09:00 05/07/22 08:06 Multivitamins, Thera 1 Each Tab PO 1 each DAILY [facility] Administration Nicotine 1 patch 05/06/22 18:15 05/07/22 08:06 Nicotine 14mg/24hr Patch TRANSDERM 1 patch DAILY [facility] Administration Nitroglycerin 0.4 mg 05/06/22 15:24 Nitroglycerin Sl Tabs 0.4 Mg Tab SUBLINGUAL Q5M PRN Chest Pain Nitroglycerin 1 inch 05/06/22 18:00 05/07/22 06:22 Nitroglycerin Oint 1 Inch/Gm Packet TOPICAL Not Given Q6HR [facility] Pantoprazole Sodium 40 mg 05/07/22 07:30 05/07/22 06:20 Pantoprazole 40 Mg Tablet PO 40 mg [id number] [facility] Administration Pregabalin 150 mg 05/06/22 16:00 05/07/22 08:06 Pregabalin 75 Mg Cap PO 150 mg TID [facility] Administration Intake and Output 05/06/22 05/07/22 05/07/22 22:59 06:59 14:59 Intake Total 237 500 Balance 237 500 Intake: Oral 237 500 Other: Voiding Method Toilet # Voids 1 Weight 104.326 kg 05/06/22 13:18 05/06/22 13:18
[2022-05-07] MEDS: DOXYCYCLINE 100 MG CAP PO SCH ×2 (11:13→20:16)
--- NOTE | 2022-05-07 14:42 | P.CNPUL ---
History of Present Illness Consult date: 05/07/22 Requesting physician: Diana Andrew Reason for consult: COPD Chief complaint: Chest pain, shortness of breath History of present illness: This is a pleasant 52-year-old male patient with a known history of hypertension, depression, chronic and ongoing tobacco dependence, chronic obstructive pulmonary disease, COVID-19 infection approximately 2-1/2 weeks ago. He presented to the emergency room yesterday with complaints of chest pain, midsternal and pressure. EKG revealed sinus rhythm with no significant ST or T wave abnormalities. Chest x-ray revealed some peribronchial cuffing and patchy perihilar opacities possible bronchitis. Troponins negative 3. ProBNP 55. White count 9.3. Hemoglobin 16.4. D-dimer 0.33. Sodium 141. Potassium 4.2. BUN 18. Creatinine 0.76. Influenza screen negative. Patient seen today in consultation on the selective care unit. He is currently resting comfortably in bed. Awake and alert in no acute distress. He is maintaining O2 saturation in the 90s on room air. He does have bilateral wheezing. He's been initiated on DuoNeb inhalations, IV Solu-Medrol. Heparin for DVT prophylaxis. NicoDerm patch in place. Review of Systems REVIEW OF SYSTEMS: CONSTITUTIONAL: Denies any recent significant weight loss or weight gain. EYES: Denies change in vision. EARS, NOSE, MOUTH, THROAT: Denies headaches, denies sore throat. CARDIOVASCULAR: Positive for chest pain, no palpitations or syncopal episodes. RESPIRATORY: Positive for shortness of breath, cough, congestion no hemoptysis. GASTROINTESTINAL: Denies change in appetite, denies abdominal pain GENITOURINARY: Denies hematuria, denies infections. MUSKULOSKELETAL: Denies pain, denies swelling. INTEGUMENTARY: Denies rash, denies eczema. NEUROLOGICAL: Denies recent memory loss, no recent seizure activity. PSYCHIATRIC: Denies anxiety, denies depression. HEMATOLOGIC/LYMPHATIC: Denies anemia, denies enlarged lymph nodes. Past Medical History Past Medical History: COPD, Hypertension, Musculoskeletal Disorder Additional Past Medical History / Comment(s): Treated w/ Rx for HTN, but "not really taking it," per patient. Cervical stenosis, NT bilat arms/hands. History of Any Multi-Drug Resistant Organisms: None Reported Past Surgical History: Back Surgery Additional Past Surgical History / Comment(s): knee surgery Past Anesthesia/Blood Transfusion Reactions: No Reported Reaction Past Psychological History: Depression Smoking Status: Current every day smoker Past Alcohol Use History: None Reported - Past Family History Father Family Medical History: Cancer Additional Family Medical History / Comment(s): lung cancer Medications and Allergies Home Medications Medication Instructions Recorded Confirmed Type Butalb/APAP/Caff 50-325-40Mg 1 tab PO Q4H PRN 04/10/21 05/06/22 History [Fioricet 50-325-40] DULoxetine HCL [Cymbalta] 60 mg PO DAILY 04/10/21 05/06/22 History HYDROcodone/APAP 5-325MG [[place] 1 tab PO Q6H PRN 08/01/21 05/06/22 History 5-325] Fluticasone/Umeclidin/Vilanter 1 puff INHALATION RT-DAILY 05/06/22 05/06/22 History [Trelegy Ellipta 100-62.5-25] LORazepam [Ativan] 0.5 mg PO HS PRN 05/06/22 05/06/22 History Metoprolol Tartrate [Lopressor] 50 mg PO BID 05/06/22 05/06/22 History Multivitamins, Thera [Multivitamin 1 tab PO DAILY 05/06/22 05/06/22 History (formulary)] Omeprazole 20 mg PO DAILY 05/06/22 05/06/22 History Pregabalin [Lyrica] 150 mg PO TID 05/06/22 05/06/22 History Allergies Allergy/AdvReac Type Severity Reaction Status Date / Time No Known Allergies Allergy Verified 05/06/22 14:30 Physical Exam Vitals: Vital Signs Temp Pulse Pulse Pulse Resp BP BP 05/07/22 11:10 98.1 F 72 18 143/79 05/07/22 08:55 78 16 05/07/22 08:45 75 16 05/07/22 08:05 97.7 F 84 16 115/58 05/07/22 03:16 98 F 90 18 138/70 05/07/22 02:00 89 18 05/07/22 00:00 97.6 F 98 20 155/46 05/06/22 20:14 88 05/06/22 20:01 90 05/06/22 19:39 98.7 F 113 H 18 163/72 05/06/22 17:57 98.4 F 104 H 16 125/65 05/06/22 17:24 97.8 F 104 H 16 125/65 05/06/22 17:00 97 18 154/87 05/06/22 16:07 93 18 05/06/22 16:00 93 21 133/92 05/06/22 15:58 109 H 18 05/06/22 15:00 92 16 151/89 Pulse Ox 05/07/22 11:10 93 L 05/07/22 08:55 05/07/22 08:45 05/07/22 08:05 93 L 05/07/22 03:16 97 05/07/22 02:00 05/07/22 00:00 95 05/06/22 20:14 05/06/22 20:01 05/06/22 19:39 94 L 05/06/22 17:57 92 L 05/06/22 17:24 92 L 05/06/22 17:00 93 L 05/06/22 16:07 05/06/22 16:00 94 L 05/06/22 15:58 05/06/22 15:00 94 L Intake and Output 05/06/22 05/07/22 05/07/22 22:59 06:59 14:59 Intake Total 237 500 358 Balance 237 500 358 Intake: Oral 237 500 358 Other: Voiding Method Toilet Toilet # Voids 1 Weight 104.326 kg GENERAL EXAM: Alert, 52-year-old male patient, on room air,, comfortable in no apparent distress. HEAD: Normocephalic. EYES: Normal reaction of pupils, equal size. NOSE: Clear with pink turbinates. THROAT: No erythema or exudates. NECK: No masses, no JVD. CHEST: No chest wall deformity. LUNGS: Equal air entry with bilateral end expiratory wheeze, diminished. CVS: S1 and S2 normal with no audible murmur, regular rhythm. ABDOMEN: No hepatosplenomegaly, normal bowel sounds, no guarding or rigidity. SPINE: No scoliosis or deformity SKIN: No rashes CENTRAL NERVOUS SYSTEM: No focal deficits, tone is normal in all 4 extremities. EXTREMITIES: There is no peripheral edema. No clubbing, no cyanosis. Peripheral pulses are intact. Results - Laboratory Findings CBC and BMP: 05/06/22 13:18 05/06/22 13:18 PT/INR, D-dimer PT 9.7 sec (9.0-12.0) 05/06/22 13:18 INR 0.9 (<1.2) 05/06/22 13:18 D-Dimer 0.33 mg/L FEU (<0.60) 05/06/22 13:18 Abnormal lab findings: Abnormal Labs 05/06/22 05/07/22 13:18 07:19 Glucose 140 H Magnesium 2.4 H Triglycerides 228.00 H Cholesterol 285.00 H LDL Cholesterol, Calc 187.8 H VLDL Cholesterol, Calc 45.60 H - Diagnostic Findings Chest x-ray: image reviewed Assessment and Plan Assessment: Atypical chest pain, acute coronary syndrome ruled out Acute exacerbation of chronic obstructive pulmonary disease Chronic and ongoing tobacco dependence History of depression Hypertension Plan: The patient was seen and evaluated Chest x-ray, labs and medications reviewed Increase Cymetra was 6 mg every 6 hours Add Symbicort inhalations Continue to DuoNeb inhalations Empiric antibiotics in the form of doxycycline Educated regarding the importance of complete smoking cessation NicoDerm patch in place Probable discharge in the a.m. He would benefit from pulmonary function testing the outpatient setting We will continue to follow and make further recommendations based on his clinical status I have personally seen and examined the patient, performed the documentation and the assessment and plan as written. Number of minutes spent on the visit: 20.
[2022-05-07] MEDS: methylPREDNISolone SOD SUCCI 125 MG/2 ML VIAL IV SCH ×2 (16:37→20:16)
[2022-05-07] MEDS: SYMBICORT 160-4.5 MCG INHALER INHALATION SCH (20:11)
[2022-05-07] MEDS ORDERED: ATORVASTATIN 40 MG TAB PO SCH (21:00)
[2022-05-08] MEDS: HEPARIN SODIUM,PORCINE/PF 5,000 UNIT/0.5 ML SYRINGE SQ SCH ×3 (01:27→17:01)
[2022-05-08] MEDS: methylPREDNISolone SOD SUCCI 125 MG/2 ML VIAL IV SCH ×2 (02:06→09:44)
[2022-05-08] MEDS: PANTOPRAZOLE 40 MG TABLET PO SCH (05:57)
[2022-05-08] MEDS: SYMBICORT 160-4.5 MCG INHALER INHALATION SCH ×2 (07:46→20:12)
[2022-05-08] MEDS: IPRATROPIUM 0.5 MG/2.5 ML NEBU INHALATION SCH ×4 (07:46→20:12)
[2022-05-08] MEDS: NICOTINE 14MG/24HR PATCH TRANSDERM SCH (09:43)
[2022-05-08] MEDS: ASPIRIN 81 MG PO SCH (09:43)
[2022-05-08] MEDS: DULoxetine HCL 60 MG CAPSULE.DR PO SCH (09:43)
[2022-05-08] MEDS: PREGABALIN 75 MG CAP PO SCH ×3 (09:43→20:31)
[2022-05-08] MEDS: MULTIVITAMINS, THERA 1 EACH TAB PO SCH (09:44)
[2022-05-08] MEDS: lisinopriL 10 MG TAB PO SCH (09:44)
[2022-05-08] MEDS: DOXYCYCLINE 100 MG CAP PO SCH (09:44)
[2022-05-08] MEDS: METOPROLOL TARTRATE 50 MG TAB PO SCH ×2 (09:44→20:31)
[2022-05-08] MEDS: HYDROcodone/APAP 5-325MG 1 EACH TAB PO PRN ×2 (10:00→17:13)
--- NOTE | 2022-05-08 12:28 | P.PN ---
Subjective Progress Note Date: 05/08/22 This is a pleasant 52-year-old male patient with a known history of hypertension, depression, chronic and ongoing tobacco dependence, chronic obstructive pulmonary disease, COVID-19 infection approximately 2-1/2 weeks ago. He presented to the emergency room yesterday with complaints of chest pain, midsternal and pressure. EKG revealed sinus rhythm with no significant ST or T wave abnormalities. Chest x-ray revealed some peribronchial cuffing and patchy perihilar opacities possible bronchitis. Troponins negative 3. ProBNP 55. White count 9.3. Hemoglobin 16.4. D-dimer 0.33. Sodium 141. Potassium 4.2. BUN 18. Creatinine 0.76. Influenza screen negative. Patient seen today in consultation on the selective care unit. He is currently resting comfortably in bed. Awake and alert in no acute distress. He is maintaining O2 saturation in the 90s on room air. He does have bilateral wheezing. He's been initiated on DuoNeb inhalations, IV Solu-Medrol. Heparin for DVT prophylaxis. NicoDerm patch in place. The patient is seen today 05/08/2022 in follow-up on the selective care unit. He is currently sitting up in bed. Awake and alert in no acute distress. He denies any worsening shortness of breath, cough or congestion. He is continued on DuoNeb inhalations, Symbicort, IV Solu-Medrol. Remains on empiric antibiotics in the form of doxycycline. NicoDerm patches in place. Heparin for DVT prophylaxis. Objective - Vital Signs Vital signs: Vital Signs Temp 97.4 F L 05/08/22 09:40 Pulse 77 05/08/22 09:40 Resp 20 05/08/22 09:40 BP 145/82 05/08/22 09:40 Pulse Ox 94 L 05/08/22 09:40 FiO2 Intake & Output 05/07/22 05/08/22 05/08/22 18:59 06:59 18:59 Intake Total 1358 Balance 1358 Intake: Oral 1358 Other: Voiding Method Toilet Toilet Toilet # Voids 4 1 1 - Exam GENERAL EXAM: Alert, 52-year-old male patient, on room air, up ambulating in his room, comfortable in no apparent distress. HEAD: Normocephalic. EYES: Normal reaction of pupils, equal size. NOSE: Clear with pink turbinates. THROAT: No erythema or exudates. NECK: No masses, no JVD. CHEST: No chest wall deformity. LUNGS: Equal air entry with bilateral end expiratory wheeze, diminished. CVS: S1 and S2 normal with no audible murmur, regular rhythm. ABDOMEN: No hepatosplenomegaly, normal bowel sounds, no guarding or rigidity. SPINE: No scoliosis or deformity SKIN: No rashes CENTRAL NERVOUS SYSTEM: No focal deficits, tone is normal in all 4 extremities. EXTREMITIES: There is no peripheral edema. No clubbing, no cyanosis. Peripheral pulses are intact. - Labs CBC & Chem 7: 05/06/22 13:18 05/06/22 13:18 Assessment and Plan Assessment: Atypical chest pain, acute coronary syndrome ruled out Acute exacerbation of chronic obstructive pulmonary disease Chronic and ongoing tobacco dependence History of depression Hypertension Plan: The patient was seen and evaluated Medications reviewed Discontinue Solu-Medrol, initiate prednisone taper Continue Symbicort, albuterol HFA Complete a course of antibiotics Again educated regarding the importance of complete smoking cessation NicoDerm patch in place Cleared for discharge from the pulmonary standpoint He would benefit from pulmonary function testing Follow-up in our office in 1 week I have personally seen and examined the patient, performed the documentation and the assessment and plan as written. Number of minutes spent on the visit: 10.
--- NOTE | 2022-05-08 12:30 | P.PN ---
Subjective Progress Note Date: 05/08/22 HISTORY OF PRESENT ILLNESS: This is a 52-year-old male with a past medical history significant for hypertension, hyperlipidemia, nicotine dependence, and recent Covid infection. Patient does not follow with a doctor of optometry. We have been asked to see the patient in consultation for chest pain. Patient examined at the bedside. Patient states he was diagnosed with Covid on 04/18/2022. He presents to the hospital with SOB and chest pain. Patient states yesterday he started having chest pain that went across his chest and up his left neck. He states the pain is worse with deep inspiration. He does report pain with chest wall palpation. He states he was feeling dizzy and lightheaded. The patient reports a frequent cough. He reports having a stress test a few years ago which was negative to his knowledge. The patient states he is unsure why he had this performed. The patient reports a family history of premature coronary artery disease. He states that his dad from heart attack at the age of 62. The patient was found to be hypertensive upon admission with a blood pressure of 209/98. The patient's blood pressure has improved with this morning. He does report that he is prescribed metoprolol an outpatient basis. He states he is prescribed a statin for his high cholesterol but reports he does not take it. He states that he has a current cigarette smoker and smokes 1 pack per day. * EKG reveals sinus mechanism with no signs of acute ischemia * Chest xray peribronchial cuffing and patchy perihilar opacities on both sides. Correlate for etiology such as bronchitis or atypical pneumonias. * Laboratory data: WBC 9.3. Hemoglobin 16.4. Platelet count 234. D-dimer 0.33. Sodium 141. Potassium 4.2. BUN 18. Creatinine 0.76. Troponin negative 3. * Current home cardiac medications include metoprolol tartrate 50 mg twice a day 05/08/2022 Patient examined this morning at the bedside. Patient denies any further episodes of chest pain or pressure. He denies shortness of breath. He continues to have cough this morning. Blood pressure remains elevated with a systolic between 140 and 160. PHYSICAL EXAM: VITAL SIGNS: Reviewed. GENERAL: Well-developed in no acute distress. HEENT: Head is normocephalic. Pupils are equal, round. Sclerae anicteric. Mucous membranes of the mouth are moist. Neck supple. No JVD or thyromegaly LUNGS: Respirations even and unlabored. Lungs diminished with wheezing and rhonchi noted HEART: Regular rate and rhythm. S1 and S2 heard. ABDOMEN: Soft. Nondistended. Nontender. EXTREMITIES: Normal range of motion. No clubbing or cyanosis. Peripheral pulses intact. No lower extremity edema NEUROLOGIC: Awake and alert. Oriented x 3. ASSESSMENT: Chest pain, atypical, troponin negative 3 Hypertension, uncontrolled on admission Hyperlipidemia, patient is noncompliant with statin therapy Recent Covid infection, March 2022 Acute COPD exacerbation Nicotine dependence Family history of premature coronary artery disease PLAN: 2-D echo ordered. Await results Add lisinopril 10 mg daily for optimal blood pressure control Continue additional cardiac medications Recommend outpatient stress test when patient's acute pulmonary issues have resolved Further recommendations pending patient course Nurse practitioner note has been reviewed by physician. Signing provider agrees with the documented findings, assessment, and plan of care. Objective - Vital Signs Vital signs: Vital Signs Temp 97.4 F L 05/08/22 09:40 Pulse 77 05/08/22 09:40 Resp 20 05/08/22 09:40 BP 145/82 05/08/22 09:40 Pulse Ox 94 L 05/08/22 09:40 FiO2 Intake & Output 05/07/22 05/08/22 05/08/22 18:59 06:59 18:59 Intake Total 1358 Balance 1358 Intake: Oral 1358 Other: Voiding Method Toilet Toilet Toilet # Voids 4 1 1 - Labs CBC & Chem 7: 05/06/22 13:18 05/06/22 13:18
--- NOTE | 2022-05-08 16:55 | P.PN ---
Subjective Progress Note Date: 05/08/22 Hospital course:: Patient is a very pleasant 52-year-old male with a past medical history of hypertension, COPD, and recent infection with Covid 19. He presented to the emergency department with a chief complaint of chest pain. Patient reports previous diagnosis of Covid 19 infection on 04/18/22. Patient reports since he has had a persistent cough, congestion, and increased shortness of breath. Patient states he has never fully recovered. He and his at bedside deny any recent fevers, chills, diaphoresis, palpitations, abdominal pain, nausea, vomiting, or any other complaints. Patient reports today prior to arrival he began experiencing significantly worsening shortness of breath and pain to left anterior chest. Upon arrival to our facility patient found to be in hypertensive urgency with blood pressure of 209/98 and heart rate of 96. Labs completed and fully reviewed. CBC, coags, and CMP showing no significant abnormalities. D- dimer was normal at 0.33 and troponin was negative at less than 0.012. An EKG was completed showing normal sinus rhythm at 87 bpm with no noted T-wave or ST abnormalities showing no signs of acute ischemia as personally reviewed and interpreted. Chest x-ray showing peribronchial cuffing and patchy perihilar opacities bilaterally, possibly residual from recent Covid 19 infection versus other etiologies such as bronchitis. Discussed results in detail with ER physician and patient has been accepted for admission under our services with consultation to cardiology and pulmonology. Troponins trended overnight all negative at less than 0.0123 draws. Influenza A and B PCR negative. Lipid profile resulting revealing elevated triglycerides of 228, cholesterol 285, LDL of 187.8, and VLDL of 45.60. Patient started on atorvastatin 40 mg nightly. Physical exam: Patient seen and fully evaluated at bedside this morning. Patient appears to have improvement in respiratory status. No longer hearing wheezing from doorway however upon auscultation patient does remain with diminished airflow and bilateral expiratory wheezes throughout all [place]. He no longer appears to have noted conversational dyspnea and reports feeling much better and ready to go home. Patient has been cleared by pulmonary and medically appears stable. Cardiology would like echocardiogram report prior to clearance. Echocardiogram completed this morning and pending results. Patient's vital signs are stable with the exception of continued elevated BPs with systolic pressures 140s to 160s. Patient has been started on lisinopril and addition to metoprolol by cardiology and we will monitor pressures for improvement. Vital signs reviewed and stable. General: Nontoxic, no distress and appears stated age. Derm: Skin warm and dry, normal coloration for ethnicity. Head: Atraumatic, normocephalic and symmetric. Eyes: EOMs intact, no lid lag, and anicteric sclera Mouth: no lip lesions, mucus membranes moist Cardiovascular: regular rate and rhythm with normal S1S2, systolic murmur, positive posterior tibial pulses bilaterally, and cap refill < 2 seconds. Lungs: Respirations even, regular, and unlabored on room air, lungs remain tight with expiratory wheezing throughout all [place]. Abdominal: soft, nontender to palpation, no guarding, no appreciable organomegaly Ext: ROM intact. No gross muscle atrophy, no edema, no contractures Neuro: Speech clear, face symmetrical and CN II-XII grossly intact with no noted focal neuro deficits Psych: Alert and oriented to person, place, time, and situation. Appropriate and pleasant affect. Assessment and Plan of Care: Chest pain, rule out acute coronary event Hypertensive urgency COPD with acute exacerbation and continued nicotine dependence, COPD exacerbation likely from recent Covid 19 infection Recent Covid 19 infection Bilateral opacities, likely residual from recent Covid 19 infection versus other etiologies such as a bronchitis -Cardiology consulted, appreciate further recommendations -Pulmonary consulted for COPD exacerbation -Telemetry monitoring -Trend troponins -Cardiac diet, NPO at midnight -Continue Aspirin, atorvastatin, and metoprolol -Lipid profile revealing elevated triglycerides of 228, cholesterol 285, LDL of 187.8, and VLDL of 45.60. Patient started on atorvastatin 40 mg nightly. -Echocardiogram -Influenza A and B PCR negative -Patient to continue Symbicort to supplement home inhaler Trelegy Ellipta based on hospital availability. -DuoNebs scheduled four times daily and as needed for shortness of breath and/or wheezing. -Nicotine patch, and strongly encourage smoking cessation -Pulmonary discontinued Solu-Medrol and started patient on prednisone 30 mg daily. -Pro-calcitonin 0.04, gas roller operator recommending patient complete course of doxycycline. CODE STATUS: Full code DVT prophylaxis: Heparin Discussed with: Patient and RN Anticipated discharge date: 1-[address]: Home A total of 34 minutes was spent on the care of this complex patient more than 50% of the time was spent in counseling and care coordination. Discontinue doxycycline. Patient COPD likely exacerbated by recent Covid 19 infection. Antibiotics would not be of benefit in a typical patient such as this. Also recent gold criteria would require the patient to have 2 of 3 cardinal symptoms (Dyspnea, increased sputum production, increased sputum purulence) to benefit from antibiotics for COPD exacerbation. Objective - Vital Signs Vital signs: Vital Signs Temp 97.4 F L 05/08/22 04:00 Pulse 75 05/08/22 04:00 Resp 17 05/08/22 04:00 BP 150/83 05/08/22 04:00 Pulse Ox 94 L 05/08/22 04:00 FiO2 Intake & Output 05/07/22 05/08/22 05/08/22 18:59 06:59 18:59 Intake Total 1358 Balance 1358 Intake: Oral 1358 Other: Voiding Method Toilet Toilet # Voids 4 1 1 - Labs CBC & Chem 7: 05/06/22 13:18 05/06/22 13:18 Labs: Abnormal Lab Results - Last 24 Hours (Table) 05/07/22 Range/Units 07:19 Triglycerides 228.00 H (0.00-149.00) mg/dL Cholesterol 285.00 H (0.00-200.00) mg/dL LDL Cholesterol, Calc 187.8 H (0.0-131.0) mg/dL VLDL Cholesterol, Calc 45.60 H (5.00-40.00) mg/dL
[2022-05-08] MEDS ORDERED: PRAVASTATIN SODIUM 40 MG TAB PO SCH (21:00)
[2022-05-08] MEDS ORDERED: DOXYCYCLINE 100 MG CAP PO SCH (21:00)
[2022-05-09] MEDS: HEPARIN SODIUM,PORCINE/PF 5,000 UNIT/0.5 ML SYRINGE SQ SCH ×2 (00:52→07:31)
[2022-05-09] MEDS: PANTOPRAZOLE 40 MG TABLET PO SCH (05:28)
[2022-05-09] MEDS: MULTIVITAMINS, THERA 1 EACH TAB PO SCH (07:34)
[2022-05-09] MEDS: ASPIRIN 81 MG PO SCH (07:34)
[2022-05-09] MEDS: METOPROLOL TARTRATE 50 MG TAB PO SCH (07:34)
[2022-05-09] MEDS: lisinopriL 10 MG TAB PO SCH (07:34)
[2022-05-09] MEDS: NICOTINE 14MG/24HR PATCH TRANSDERM SCH (07:34)
[2022-05-09] MEDS: DULoxetine HCL 60 MG CAPSULE.DR PO SCH (07:34)
[2022-05-09] MEDS: PREGABALIN 75 MG CAP PO SCH (07:34)
[2022-05-09] MEDS: HYDROcodone/APAP 5-325MG 1 EACH TAB PO PRN (07:36)
[2022-05-09 07:42] VITALS: BP 122/81; PULSE 60; RESP 16; TEMP 97.9
[2022-05-09] MEDS: SYMBICORT 160-4.5 MCG INHALER INHALATION SCH (08:23)
[2022-05-09] MEDS: IPRATROPIUM 0.5 MG/2.5 ML NEBU INHALATION SCH ×2 (08:24→12:03)
[2022-05-09] MEDS ORDERED: predniSONE 10 MG TAB PO SCH (09:00)
--- NOTE | 2022-05-09 09:38 | P.PN ---
Subjective Progress Note Date: 05/09/22 HISTORY OF PRESENT ILLNESS: This is a 52-year-old male with a past medical history significant for hypertension, hyperlipidemia, nicotine dependence, and recent Covid infection. Patient does not follow with a setup technician. We have been asked to see the patient in consultation for chest pain. Patient examined at the bedside. Patient states he was diagnosed with Covid on 04/18/2022. He presents to the hospital with SOB and chest pain. Patient states yesterday he started having chest pain that went across his chest and up his left neck. He states the pain is worse with deep inspiration. He does report pain with chest wall palpation. He states he was feeling dizzy and lightheaded. The patient reports a frequent cough. He reports having a stress test a few years ago which was negative to his knowledge. The patient states he is unsure why he had this performed. The patient reports a family history of premature coronary artery disease. He states that his dad from heart attack at the age of 62. The patient was found to be hypertensive upon admission with a blood pressure of 209/98. The patient's blood pressure has improved with this morning. He does report that he is prescribed metoprolol an outpatient basis. He states he is prescribed a statin for his high cholesterol but reports he does not take it. He states that he has a current cigarette smoker and smokes 1 pack per day. * EKG reveals sinus mechanism with no signs of acute ischemia * Chest xray peribronchial cuffing and patchy perihilar opacities on both sides. Correlate for etiology such as bronchitis or atypical pneumonias. * Laboratory data: WBC 9.3. Hemoglobin 16.4. Platelet count 234. D-dimer 0.33. Sodium 141. Potassium 4.2. BUN 18. Creatinine 0.76. Troponin negative 3. * Current home cardiac medications include metoprolol tartrate 50 mg twice a day 05/08/2022 Patient examined this morning at the bedside. Patient denies any further episodes of chest pain or pressure. He denies shortness of breath. He continues to have cough this morning. Blood pressure remains elevated with a systolic between 140 and 160. 05/09/2022 Patient examined this morning at the bedside. Patient denies chest pain or pressure. Denies SOB. Vital signs are stable. PHYSICAL EXAM: VITAL SIGNS: Reviewed. GENERAL: Well-developed in no acute distress. HEENT: Head is normocephalic. Pupils are equal, round. Sclerae anicteric. Mucous membranes of the mouth are moist. Neck supple. No JVD or thyromegaly LUNGS: Respirations even and unlabored. Lungs diminished with wheezing and rhonchi noted HEART: Regular rate and rhythm. S1 and S2 heard. ABDOMEN: Soft. Nondistended. Nontender. EXTREMITIES: Normal range of motion. No clubbing or cyanosis. Peripheral pulses intact. No lower extremity edema NEUROLOGIC: Awake and alert. Oriented x 3. ASSESSMENT: Chest pain, atypical, troponin negative 3 Hypertension, uncontrolled on admission Hyperlipidemia, patient is noncompliant with statin therapy Recent Covid infection, March 2022 Acute COPD exacerbation Nicotine dependence Family history of premature coronary artery disease PLAN: 2-D echo ordered. Await results Continue current cardiac medications Recommend outpatient stress test Further recommendations pending patient course Nurse practitioner note has been reviewed by physician. Signing provider agrees with the documented findings, assessment, and plan of care. Objective - Vital Signs Vital signs: Vital Signs Temp 97.9 F 05/09/22 07:41 Pulse 60 05/09/22 07:41 Resp 16 05/09/22 07:41 BP 122/81 05/09/22 07:41 Pulse Ox 95 05/09/22 07:41 FiO2 Intake & Output 05/08/22 05/09/22 05/09/22 18:59 06:59 18:59 Intake Total 240 Balance 240 Intake: Oral 240 Other: Voiding Method Toilet Toilet Toilet # Voids 1 1 - Labs CBC & Chem 7: 05/06/22 13:18 05/06/22 13:18
--- NOTE | 2022-05-09 10:26 | CA ---
Transthoracic Echo Report Name: Spenser Whitfield Age: 52 Gender: M : 1970 Exam Date: 05/08/2022 10:05 Exam Location: [facility] Ht (in): 72 Wt (lb): 230 Ordering Physician: Bhavik Sandoval DO Attending/Referring Phys: [id number], Lori Information Technology Auditor Opal Najera, [id number] Procedure CPT: Indications: CP Cardiac Hx: Technical Quality: Contrast 1: Total Dose (mL): Contrast 2: Total Dose (mL): MEASUREMENTS (Male / Female) Normal Values 2D ECHO LV Diastolic Diameter PLAX 5.0 cm 4.2 - 5.9 / 3.9 - 5.3 cm LV Systolic Diameter PLAX 3.4 cm IVS Diastolic Thickness 0.8 cm 0.6 - 1.0 / 0.6 - 0.9 cm LVPW Diastolic Thickness 1.4 cm 0.6 - 1.0 / 0.6 - 0.9 cm LV Relative Wall Thickness 0.4 RV Internal Dim ED PLAX 4.2 cm LA Systolic Diameter LX 2.9 cm 3.0 - 4.0 / 2.7 - 3.8 cm LA Volume 65.7 cm??? 18 - 58 / 22 - 52 cm??? M-MODE Aortic Root Diameter MM 2.7 cm LA Systolic Diameter MM 3.9 cm LA Ao Ratio MM 1.4 MV E Point Septal Separation 0.4 cm AV Cusp Separation MM 2.0 cm DOPPLER MV Area PHT 5.2 cm??? Mitral E Point Velocity 103.7 cm/s Mitral A Point Velocity 82.7 cm/s Mitral E to A Ratio 1.3 MV Deceleration Time 146.5 ms MV E' Velocity 10.2 cm/s Mitral E to MV E' Ratio 10.2 TR Peak Velocity 290.3 cm/s TR Peak Gradient 33.7 mmHg Right Ventricular Systolic Press 38.6 mmHg FINDINGS Left Ventricle Left ventricular ejection fraction is estimated at 55%. Left ventricular cavity size normal. Mildly increased left ventricular wall thickness. Right Ventricle Moderate right ventricular dilatation. Mild pulmonary hypertension. Right ventricular systolic pressure estimated at 39 mm hg. Right Atrium Normal right atrial size. Left Atrium Mildly increased left atrial volume. Mitral Valve Structurally normal mitral valve. Mild mitral regurgitation. Aortic Valve Trileaflet aortic valve. Tricuspid Valve Structurally normal tricuspid valve. Mild tricuspid regurgitation. Pulmonic Valve Structurally normal pulmonic valve. Pericardium Normal pericardium. Aorta Normal size aortic root and proximal ascending aorta. CONCLUSIONS Normal left ventricular size and systolic function. Mild concentric LVH. Prominent right ventricle. Mild mitral and tricuspid insufficiency. No pericardial effusion Previewed by: Dr. Ashlie Torres MD (Electronically Signed) Final Date: 09 May 2022 10:26
--- NOTE | 2022-05-09 10:54 | P.DS ---
Providers Date of admission: 05/06/22 15:24 Expected date of discharge: 05/09/22 Attending physician: Diana Andrew DO Consults: 05/06/22 15:24 Consult Physician Urgent Consulting Provider: Pepe Ahmadi Consult Reason/Comments: cp Do you want consulting provider notified?: Yes 05/06/22 17:20 Consult Physician Routine Consulting Provider: Marian Mares Consult Reason/Comments: COPD with exacerbation Do you want consulting provider notified?: Yes, Notify in am Primary care physician: Cristi Saunders MD Hospital Course: Discharge Diagnosis: Chest pain, acute coronary event ruled out. Patient to follow up outpatient with cardiology in 1 week for completion of recommended outpatient stress testing. Hypertensive urgency, blood pressures. Patient started on lisinopril in addition to daily home medication with metoprolol. Blood pressures much improved with morning blood pressure 122/81 and heart rate of 60. COPD with acute exacerbation and continued nicotine dependence, COPD exacerbation likely from recent Covid 19 infection. Patient strongly advised on smoking cessation and risks associated with continued use. Patient discharged home on prednisone, Symbicort, and Trelegy Elipta and nicotine patches. Patient to follow up outpatient with heel seat trimmer in 1 week for continued close monitoring and management and recommended pulmonary function testing. Recent Covid 19 infection Bilateral opacities, likely residual from recent Covid 19 infection versus other etiologies such as a bronchitis. Mild pulmonary hypertension Newly diagnosed hyperlipidemia, triglycerides elevated at 228, cholesterol 285, LDL 187.8, and VLDL of 45.60. Patient discharged home on pravastatin 40 mg nightly. Nicotine dependence, strongly encourage smoking cessation. Patient provided with nicotine patch prescription upon discharge. Hospital Course: Patient is a very pleasant 52-year-old male with a past medical history of hypertension, COPD, and recent infection with Covid 19. He presented to the emergency department with a chief complaint of chest pain. Patient reports p revious diagnosis of Covid 19 infection on 04/18/22. Patient reports since he has had a persistent cough, congestion, and increased shortness of breath. Patient states he has never fully recovered. He and his at bedside deny any recent fevers, chills, diaphoresis, palpitations, abdominal pain, nausea, vomiting, or any other complaints. Patient reports today prior to arrival he began experiencing significantly worsening shortness of breath and pain to left anterior chest. Upon arrival to our facility patient found to be in hypertensive urgency with blood pressure of 209/98 and heart rate of 96. Labs completed and fully reviewed. CBC, coags, and CMP showing no significant abnormalities. D- dimer was normal at 0.33 and troponin was negative at less than 0.012. An EKG was completed showing normal sinus rhythm at 87 bpm with no noted T-wave or ST abnormalities showing no signs of acute ischemia as personally reviewed and interpreted. Chest x-ray showing peribronchial cuffing and patchy perihilar opacities bilaterally, possibly residual from recent Covid 19 infection versus other etiologies such as bronchitis. Discussed results in detail with ER physician and patient has been accepted for admission under our services with consultation to cardiology and pulmonology. Troponins trended overnight all negative at less than 0.0123 draws. Influenza A and B PCR negative. Lipid profile resulting revealing elevated triglycerides of 228, cholesterol 285, LDL of 187.8, and VLDL of 45.60. Patient started on atorvastatin 40 mg nightly. Echocardiogram completed with report showing of 55% ejection fraction, moderate right ventricular dilation with mild pulmonary hypertension, and mild mitral and tricuspid regurgitation. Cardiology recommending outpatient follow-up in their office in one week for a stress test once patient is over her current COPD exacerbation. Had long discussion with patient regarding importance of smoking cessation and risks associated with continued use. Patient to follow up outpatient with PCP in 1-2 days, cardiology in 1 week, and pulmonology in one week as he will need PFTs completed.. Medically patient is stable for discharge at this time. Physical exam: Vital signs reviewed and stable. General: Nontoxic, no distress and appears stated age. Derm: Skin warm and dry, normal coloration for ethnicity. Head: Atraumatic, normocephalic and symmetric. Eyes: EOMs intact, no lid lag, and anicteric sclera Mouth: no lip lesions, mucus membranes moist Cardiovascular: regular rate and rhythm with normal S1S2, systolic murmur, positive posterior tibial pulses bilaterally, and cap refill < 2 seconds. Lungs: Respirations even, regular, and unlabored on room air, lungs with much improved air flow and only a few soft expiratory wheezes noted. . Abdominal: soft, nontender to palpation, no guarding, no appreciable organomegaly Ext: ROM intact. No gross muscle atrophy, no edema, no contractures Neuro: Speech clear, face symmetrical and CN II-XII grossly intact with no noted focal neuro deficits Psych: Alert and oriented to person, place, time, and situation. Appropriate and pleasant affect. A total of 34 minutes of time were spent preparing this complex discharge summary. Pt was discharged on 05/09/22 at 10:45 AM. Mathew Juarez NP rendered care for this patient independently, reviewed the findings and plan as documented in the note above. I did not physically speak with or examine the patient on this date. Patient Condition at Discharge: Stable Plan - Discharge Summary Discharge Rx Participant: No New Discharge Prescriptions: New Aspirin 81 mg PO DAILY 30 Days #30 tab Nicotine 14Mg/24Hr Patch [Habitrol] 1 patch TRANSDERM DAILY 30 Days #30 patch predniSONE [Deltasone] 40 mg PO DAILY 5 Days #10 tab Pravastatin Sodium [Pravachol] 40 mg PO HS 30 Days #30 tab Budesonide-Formot 160-4.5 Mcg [Symbicort 160-4.5 Mcg Inhaler] 2 puff INHALATION RT-BID 30 Days #1 each lisinopriL [Zestril] 10 mg PO DAILY 30 Days #30 tab Continue Pregabalin [Lyrica] 150 mg PO TID Omeprazole 20 mg PO DAILY Multivitamins, Thera [Multivitamin (formulary)] 1 tab PO DAILY DULoxetine HCL [Cymbalta] 60 mg PO DAILY Butalb/APAP/Caff 50-325-40Mg [Fioricet 50-325-40] 1 tab PO Q4H PRN PRN Reason: Migraine Headache HYDROcodone/APAP 5-325MG [Lincoln 5-325] 1 tab PO Q6H PRN PRN Reason: Pain Fluticasone/Umeclidin/Vilanter [Trelegy Ellipta 100-62.5-25] 1 puff INHALATION RT-DAILY Metoprolol Tartrate [Lopressor] 50 mg PO BID LORazepam [Ativan] 0.5 mg PO HS PRN PRN Reason: Anxiety Discharge Medication List Butalb/APAP/Caff 50-325-40Mg [Fioricet 50-325-40] 1 tab PO Q4H PRN 04/10/21 [History] DULoxetine HCL [Cymbalta] 60 mg PO DAILY 04/10/21 [History] HYDROcodone/APAP 5-325MG [Lincoln 5-325] 1 tab PO Q6H PRN 08/01/21 [History] Fluticasone/Umeclidin/Vilanter [Trelegy Ellipta 100-62.5-25] 1 puff INHALATION RT-DAILY 05/06/22 [History] LORazepam [Ativan] 0.5 mg PO HS PRN 05/06/22 [History] Metoprolol Tartrate [Lopressor] 50 mg PO BID 05/06/22 [History] Multivitamins, Thera [Multivitamin (formulary)] 1 tab PO DAILY 05/06/22 [History] Omeprazole 20 mg PO DAILY 05/06/22 [History] Pregabalin [Lyrica] 150 mg PO TID 05/06/22 [History] Aspirin 81 mg PO DAILY 30 Days #30 tab 05/09/22 [Rx] Budesonide-Formot 160-4.5 Mcg [Symbicort 160-4.5 Mcg Inhaler] 2 puff INHALATION RT-BID 30 Days #1 each 05/09/22 [Rx] Nicotine 14Mg/24Hr Patch [Habitrol] 1 patch TRANSDERM DAILY 30 Days #30 patch 05/09/22 [Rx] Pravastatin Sodium [Pravachol] 40 mg PO HS 30 Days #30 tab 05/09/22 [Rx] lisinopriL [Zestril] 10 mg PO DAILY 30 Days #30 tab 05/09/22 [Rx] predniSONE [Deltasone] 40 mg PO DAILY 5 Days #10 tab 05/09/22 [Rx] Follow up Appointment(s)/Referral(s): Marian Mares MD [STAFF PHYSICIAN] - 05/20/22 9:45 am Cristi Saunders MD [Primary Care Provider] - 1-2 days (Office not answering at this time, please call [facility]ARY for follow up.) Pepe Ahmadi MD [STAFF PHYSICIAN] - 1 Week (Office to pull records and call you to schedule an appointment.) Patient Instructions/Handouts: Chest Pain (DC), How to Stop Smoking (DC), Cigarette Smoking and Your Health (GEN), Hypertensive Crisis (DC), Hypertension (DC) Activity/Diet/Wound Care/Special Instructions: Activity: As tolerated. Take breaks as needed. Diet: Heart healthy and carb consistent diet. Avoid salts, or foods with hidden salts such as canned or boxed foods and frozen dinners. Extra salt makes your heart work harder and traps the fluid in your body for longer. Special Instructions: Take all of your medications as directed and remember to keep all of your doctor's appointments and follow-up as needed. Thank you for allowing us to participate in your care, it was truly a pleasure having you for our patient!!! Discharge Disposition: HOME SELF-CARE
== END 2022-05-09 12:04 | disposition home or self-care (01) | DRG 192 ==
LOC: EC 12:46 → 3SCARD 15:24
PROVIDERS: ADMIT Internal Medicine; ATTEND Internal Medicine
DX: J44.1 Chronic obstructive pulmonary disease with (acute) exacerbation (principal); I27.20 Pulmonary hypertension, unspecified; I16.0 Hypertensive urgency; I10 Essential (primary) hypertension; R07.89 Other chest pain; E78.2 Mixed hyperlipidemia; F32.A Depression, unspecified; I08.1 Rheumatic disorders of both mitral and tricuspid valves; T50.996A Underdosing of other drugs, medicaments and biological substances, initial encounter; Z91.128 Patient's intentional underdosing of medication regimen for other reason; M48.02 Spinal stenosis, cervical region; R05.3 Chronic cough; F17.210 Nicotine dependence, cigarettes, uncomplicated; Z71.6 Tobacco abuse counseling; Z79.51 Long term (current) use of inhaled steroids; Z79.899 Other long term (current) drug therapy; Z86.16 Personal history of COVID-19
CPT/HCPCS: 36415; 71046; 80053; 80061; 83735; 83880; 84145; 84484; 85025; 85379; 85610; 85730; 87502; 93005; 93306; 94640; 94760; 96372; 96374; 96375; 99285

== ENCOUNTER → 2022-07-11 | Outpatient (CLI) | payer BC ==
--- NOTE | 2022-07-14 10:11 | MR ---
EXAMINATION TYPE: MR cervical spine wo con DATE OF EXAM: 07/11/2022 INDICATION: Patient age:Male; 52 years old; Reason for study: M54.2 CERVICALGIA. Neck pain, weakness, headaches, hx injury. COMPARISON: MR cervical spine 07/01/2021. TECHNIQUE: Multi planar, multi sequence imaging was performed utilizing: T1-weighted, T2-weighted, an d turbo inversion recovery imaging of the cervical spine. IV Contrast: None FINDINGS: Alignment: The cervical vertebral bodies have preserved heights. Straightening of the cervical alignm ent. Bones: Postsurgical changes with anterior fixation at C3, C4 and C5. No abnormal bony edema throughou t the cervical spine. Mild degeneration changes are present. Hardware appears in appropriate position . Scattered uncovertebral facet joint arthropathy. Mild disc space narrowing throughout the lower cer vical spine. Cord: The spinal cord is unremarkable with regards to their signal intensity and morphology. Discs: Multilevel disc desiccation is present. C2-C3: No significant disc pathology. The spinal canal is patent. Bilateral facet and uncovertebral joint arthropathy are present with mild bilateral neural foraminal stenosis. C3-C4: No significant disc pathology. The spinal canal is patent. Bilateral facet and uncovertebral joint arthropathy are present with mild to moderate bilateral neural foraminal stenosis. C4-C5: No significant disc pathology. The spinal canal is patent. Bilateral facet and uncovertebral joint arthropathy are present with mild to moderate bilateral neural foraminal stenosis. C5-C6: A disc osteophyte complex is present which minimally narrows the ventral subarachnoid space. Bilateral facet and uncovertebral joint arthropathy are present with mild to moderate bilateral neur al foraminal stenosis. C6-C7: No significant disc pathology. The spinal canal is patent. No neural foraminal stenosis. C7-T1: A disc osteophyte complex is present with mild spinal canal stenosis. No neural foraminal rekha nosis. Other: None. IMPRESSION: 1. Interval postsurgical changes to the spine with improved spinal patency. Hardware appears in appr opriate position. 2. No evidence for significant spinal canal stenosis or disc herniation. 3. Scattered uncovertebral and facet joint arthropathy throughout the spine with mild and mild to mo derate neural foraminal stenosis.
== END | disposition home or self-care (01) ==
LOC: RADMRIMAIN 12:45
PROVIDERS: ATTEND Orthopaedic Surgery Orthopaedic Surgery of the Spine
DX: S93.431D Sprain of tibiofibular ligament of right ankle, subsequent encounter (principal); M50.01 Cervical disc disorder with myelopathy, high cervical region; M25.562 Pain in left knee; M19.071 Primary osteoarthritis, right ankle and foot; M47.12 Other spondylosis with myelopathy, cervical region; M22.2X2 Patellofemoral disorders, left knee; M99.72 Connective tissue and disc stenosis of intervertebral foramina of thoracic region; Z98.1 Arthrodesis status; Z47.89 Encounter for other orthopedic aftercare; R53.1 Weakness
CPT/HCPCS: 72141

== ENCOUNTER → 2022-09-25 | Outpatient (CLI) | payer BC | END | disposition home or self-care (01) | LOC: LABWHC1 10:19 | PROVIDERS: ATTEND Orthopaedic Surgery | DX: Z53.9 Procedure and treatment not carried out, unspecified reason (principal) ==

== ENCOUNTER → 2022-09-26 | Outpatient (CLI) | payer BC ==
[2022-09-26 11:20] LABS: INR 0.9 (<1.2); Partial Thromboplastin Time 25.5 sec (22.0-30.0); Prothrombin Time 10.1 sec (9.0-12.0)
[2022-09-26 16:23] LABS: Basophils # (A) 0.15 X 10*3/uL (0.00-0.10); Basophils % (A) 1.8 %; Eosinophils # (A) 0.35 X 10*3/uL (0.04-0.35); Eosinophils % (A) 4.2 %; HCT 46.8 % (39.6-50.0); Immature Grans, Automated 0.2 %; Lymphocytes # (A) 1.95 X 10*3/uL (0.90-5.00); Lymphocytes % (A) 23.2 %; MCH 32.7 pg (27.0-32.0); MCHC 34.2 g/dL (32.0-37.0); MCV 95.5 fL (80.0-97.0); Mean Platelet Volume 9.5 fL (9.5-12.2); Monocytes # (A) 0.61 X 10*3/uL (0.20-1.00); Monocytes % (A) 7.3 %; NRBC Per 100 WBC 0 /100 WBCS (0.0-0.0); Neutrophils # (A) 5.32 X 10*3/uL (1.80-7.70); Neutrophils % (A) 63.3 %; Platelet Count 302 X 10*3/uL (140-440); RDW 11.3 % (11.5-14.5)
[2022-09-26 16:44] LABS: ALT 25 U/L (10-49); AST 14 U/L (14-35); African American GFR (CKD) 118.2 (60.0-200.0); Albumin 4.6 g/dL (3.8-4.9); Albumin/Globulin Ratio 1.92 (1.60-3.17); Alkaline Phosphatase 79 U/L (41-126); BUN/Creat Ratio 18.38 Ratio (12.00-20.00); Blood Urea Nitrogen 14.7 mg/dL (9.0-27.0); Calcium 9.5 mg/dL (8.7-10.3); Carbon Dioxide 25.6 mmol/L (20.0-27.5); Chloride 101 mmol/L (96-109); Globulin 2.4 g/dL (1.6-3.3); Glucose 126 mg/dL (70-110); Potassium 4.4 mmol/L (3.5-5.5); Sodium 138 mmol/L (135-145); Total Bilirubin <0.15 mg/dL (0.30-1.20)
== END | disposition home or self-care (01) ==
LOC: LABWHC1 09:48
PROVIDERS: ATTEND Orthopaedic Surgery
DX: Z01.812 Encounter for preprocedural laboratory examination (principal); M12.9 Arthropathy, unspecified; D64.9 Anemia, unspecified
CPT/HCPCS: 36415; 80053; 83036; 85025; 85610; 85730; 86850; 86900; 86901; 87070

== ENCOUNTER → 2024-07-14 | Outpatient (CLI) | payer MEDICARE ==
--- NOTE | 2024-07-14 15:47 | MR ---
INDICATION: Patient age:Male; 54 years old; Reason for study: M51.16 INTERVERTEBRAL DISC DISORDERS W RADICULOPAT; PHH. COMPARISONS: No priors. TECHNIQUE: Multi planar, multi sequence imaging was performed utilizing: T1-weighted, T2-weighted, a nd turbo inversion recovery imaging of the lumbar spine. The patient was not given contrast. FINDINGS: The lumbar vertebral bodies do have preserved heights. Postsurgical changes from laminecto my at L3-L4. Mild retrolisthesis of L1 on L2. Grade 1 anterolisthesis of L3 on L4 without pars defect s. Multilevel anterior osteophytosis. Benign bone island with T1/T2 hyperintensity within the T12 ar tebral body. Type II Modic changes involving the endplates around the L3-L4 disc. Multilevel disc tawny iccation is present. Near-complete height loss of the L3-L4 discs with vacuum disc disease. Additiona l vacuum disc disease within the L4-L5 and L5-S1 discs. Advanced height loss of the L1-L2 disc. The c onus medullaris and the distal spinal cord do appear unremarkable with regards to their signal intens ity and morphology. T12-L1: Eccentric right disc bulge with annular fissure results in mild effacement of the anterior ri ght thecal sac. Mild to moderate central canal stenosis. Bilateral facet arthropathy and ligamentum f lavum buckling. No significant neural foraminal stenosis. L1-L2: No disc herniation or disc bulge. Bilateral facet arthropathy and ligamentum flavum buckling resulting in mild central canal stenosis. Mild bilateral neural foraminal stenosis. L2-L3: Postsurgical changes from laminectomy. No central canal stenosis. No disc herniation. Bilater al facet arthropathy resulting in mild bilateral neural foraminal stenosis. L3-L4: Postsurgical changes from laminectomy. Grade 1 anterolisthesis of the covering of the disc. Br oad-based disc bulge and ligamentum flavum buckling and bilateral facet arthropathy contribute to mod erate central canal stenosis. Moderate bilateral neural foraminal stenosis. L4-L5: Diffuse disc bulge with minimal effacement of the anterior thecal sac. Ligamentum flavum buckl ing without significant central canal stenosis. Bilateral facet arthropathy. Mild to moderate bilater al neural foraminal stenosis. L5-S1: Left paracentral disc protrusion superimposed upon a diffuse disc bulge results in mild efface ment of the anterior thecal sac and resulting in mild central canal stenosis. Bilateral facet arthrop athy. Mild to moderate bilateral neural foraminal stenosis. Other significant findings: None. IMPRESSION: 1. Moderate multilevel disc degeneration with associated osteoarthritic changes as described above. 2. Mild retrolisthesis of L1 on L2. Grade 1 anterolisthesis of L3 on L4 without pars defects. 3. Postsurgical changes. No prior imaging available for comparison. [facility], , 07/14/2024 3:45 PM
== END | disposition home or self-care (01) ==
LOC: RADMRIMAIN 14:46
PROVIDERS: ATTEND Family Medicine
DX: M51.16 Intervertebral disc disorders with radiculopathy, lumbar region (principal); M47.26 Other spondylosis with radiculopathy, lumbar region; M43.16 Spondylolisthesis, lumbar region; Z98.890 Other specified postprocedural states
CPT/HCPCS: 72148

== ENCOUNTER → 2024-07-29 | Outpatient (CLI) | payer MEDICARE ==
--- NOTE | 2024-07-29 13:15 | CT ---
EXAMINATION TYPE: CT lumbar spine wo con DATE OF EXAM: 07/29/2024 12:43 PM COMPARISON: None. CLINICAL INDICATION: Male, 54 years old with history of M54.16; PHH, Lumbar radiculopathy. Pt c/o sonu n RT side, radiating down RT leg. TECHNIQUE: Unenhanced CT of the lumbar spine was performed. Bone and soft tissue window settings are submitted as well as coronal and sagittal reconstructions. CT DLP: 1620.7 mGycm Automated exposure control for dose reduction was used. FINDINGS: There are 5 lumbar-type vertebra. Slight Scoliotic curvature is seen. There is grade 1 retrolisthesis L1 on L2 and L2 on L3 along with L4 on L5. There is grade 1 anterolisthesis L3 on L4. Vertebral body heights are maintained. There is advanced disc space narrowing with vacuum disc phenomenon and endpl ate sclerosis at the left L3-L4 level. There is moderate to advanced disc space narrowing secondary p henomenon at the L2-L3 level. There is moderate disc space narrowing and anterior spurring at the L1- L2 level. There is moderate disc space narrowing and vacuum disc phenomenon at the L5-S1 level. There are posterior decompression changes of spinous process resection in the mid lumbar spine. There is moderate to severe multilevel facet arthropathy from L2-L3 through the L5-S1 levels. There i s multilevel neural foraminal narrowing most prominent bilateral L3-L4 and L4-L5 levels. There is sig nificant spinal canal effacement or stenosis at the L1-L2 level due to disc herniation and facet arth ropathy along with spondylolisthesis axial image 29. Visualized portion of the liver is heterogeneously hypodense consistent with diffuse fatty infiltrati on. IMPRESSION: Multilevel spondylolisthesis and significant degenerative change as detailed above. . [facility], , 07/29/2024 1:13 PM
--- NOTE | 2024-07-29 13:30 | XR ---
EXAMINATION TYPE: XR lumbar spine with bend/flex, 5 views DATE OF EXAM: 07/29/2024 12:37 PM COMPARISON: None CLINICAL INDICATION: Male, 54 years old with history of M54.16; PHH, pain FINDINGS: Gentle reverse S-shaped curvature of the lower thoracic and lumbar spine. 5 lumbar type vertebral bod ies. Severe multilevel facet arthropathy. Moderate to severe multilevel degenerative disc disease. Ve rtebral body heights are preserved. Fixed degenerative grade 1 retrolisthesis L1-L2 and L2-L3. Grade 2 anterolisthesis L3-L4 which increases from 8 mm to 1.4 cm on flexion. Trace grade 1 anterolisthesis develops at L4-L5 upon flexion. IMPRESSION: 1. Degenerated dextroconvex scoliosis lumbar spine. No vertebral compression collapse. 2. Fixed grade 1 retrolistheses at L1-L2 and L2-L3. 3. Grade 2 anterolisthesis at L3-L4 which worsens on flexion. 4. Flexion also results in the development of a trace grade 1 anterolisthesis at L4-L5. [facility], , 07/29/2024 1:27 PM
== END | disposition home or self-care (01) ==
LOC: RADCTMAIN 12:04
PROVIDERS: ATTEND Neurological Surgery
DX: M51.16 Intervertebral disc disorders with radiculopathy, lumbar region (principal); M47.26 Other spondylosis with radiculopathy, lumbar region; M43.16 Spondylolisthesis, lumbar region; M41.86 Other forms of scoliosis, lumbar region
CPT/HCPCS: 72114; 72131